=== PATIENT | male | born 1965 | race Caucasian/White ===

== ENCOUNTER 2016-06-07 18:31 | Inpatient (IN) | payer OTHER, BC ==
[~2016-06-07] VITALS: Ht 180.3 cm; Wt 104.0 kg
[~2016-06-07 18:31] MED LIST: LACTATED RINGER'S 1000 ML INJ 1,000 ML IV ONE; ONDANSETRON HCL 4 MG/2 ML VIAL IV PUSH ONE; PROPOFOL 200 MG/20 ML AMP IV ONE
[2016-06-07] MEDS ORDERED: MORPHINE SULFATE 8 MG/ML INJ ONE (18:36)
[2016-06-07] MEDS ORDERED: ceFAZolin 2 GM PREMIX 50 ML ONE (18:36)
[2016-06-07] MEDS ORDERED: DIPHTH/TETANUS/ACEL PERTUSSIS (BOOSTER) 0.5 ML VIAL/PFS IM ONE (18:39)
[2016-06-07 18:42] VITALS: O2SAT 99
[2016-06-07 18:56] LABS: AUTOMATED NEUTROPHIL # 15.1 TH/MM3 (1.8-7.7); BASOPHIL # 0.3 TH/MM3 (0-0.2); BASOPHIL % 1.5 % (0.0-2.0); EOSINOPHIL # 0.2 TH/MM3 (0-0.4); HEMATOCRIT 36.1 % (39.0-51.0); HEMO FLAGS DIFF FINAL; LYMPH % 16.3 % (9.0-44.0); LYMPHOCYTE # 3.3 TH/MM3 (1.0-4.8); MEAN CELL VOLUME 85.6 FL (80.0-100.0); MEAN CORPUSCULAR HEMOGLOBIN 28.9 PG (27.0-34.0); MEAN CORPUSCULAR HGB CONC 33.8 % (32.0-36.0); MONO % 6.4 % (0.0-8.0); NEUT % 74.8 % (16.0-70.0); PLATELET COUNT 354 TH/MM3 (150-450); RED BLOOD COUNT 4.22 MIL/MM3 (4.50-5.90); RED CELL DISTRIBUTION WIDTH 13.4 % (11.6-17.2); WHITE BLOOD COUNT 20.2 TH/MM3 (4.0-11.0)
[2016-06-07 18:59] LABS: I-STAT POTASSIUM 3.1 MMOL/L (3.5-4.9)
[2016-06-07] MEDS ORDERED: IOHEXOL 350 MG/ML 10 ML VIAL (for RAD DIAG) IV ONE (19:10)
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
--- NOTE | 2016-06-07 19:16 | RADRPT ---
EXAM DATE/TIME: 06/07/2016 18:57 [facility] COMPARISON: None. [EFORM] TECHNIQUE: Multiple contiguous axial images were obtained of the head. Using automated exposure control and adj ustment of the mA and/or kV according to patient size, radiation dose was kept as low as reasonably a chievable to obtain optimal diagnostic quality images. FINDINGS: CEREBRUM: The ventricles are normal for age. No evidence of midline shift, mass lesion, hemorrhage or acute in farction. No extra-axial fluid collections are seen. POSTERIOR FOSSA: The cerebellum and brainstem are intact. The 4th ventricle is midline. The cerebellopontine angle i s unremarkable. EXTRACRANIAL: The visualized portion of the orbits is intact. SKULL: The calvaria is intact. No evidence of skull fracture. CONCLUSION: 1. No acute intracranial abnormalities. Jori Rivas MD on June 07, 2016 at 19:14 on June 07, 2016 at 19:11 Board Certified Radiologist. This report was verified electronically.
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
--- NOTE | 2016-06-07 19:23 | RADRPT ---
EXAM DATE/TIME: 06/07/2016 18:26 [facility] COMPARISON: No previous studies available for comparison. INDICATIONS : Right Wrist pain Trauma Alert MEDICAL HISTORY : Unobtainable SURGICAL HISTORY : Unobtainable ENCOUNTER: Initial ACUITY: 1 day PAIN SCORE: 10/10 LOCATION: Right upper extremity FINDINGS: There is an intra-articular displaced fracture of the distal radius and ulna styloid. No dislocation at the wrist joint. Remote healed fracture fourth metacarpal. CONCLUSION: 1. Displaced Colles' fracture right wrist. Jori Rivas MD on June 07, 2016 at 19:21 Board Certified Radiologist. This report was verified electronically.
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
[2016-06-07 19:56] LABS: APTT (PATIENT) 18.7 SEC (24.3-30.1)
[2016-06-07] MEDS ORDERED: DEXAMETHASONE SOD PHOS 4 MG/ML VIAL ONE (20:01)
[2016-06-07] MEDS ORDERED: ACETAMINOPHEN 1000 MG/100 ML VIAL IV ONE (20:01)
[2016-06-07] MEDS ORDERED: GENTAMICIN SULFATE 80 MG/2 ML VIAL ONE ×2 (20:02→20:03)
[2016-06-07] MEDS ORDERED: FAMOTIDINE 20 MG/2 ML VIAL ONE (20:02)
[2016-06-07] MEDS ORDERED: BACITRACIN TOP OINT 15 GM TUBE ONE (20:03)
[2016-06-07] MEDS ORDERED: SUGAMMADEX SODIUM 200 MG/2 ML VIAL IV PUSH ONE ×2 (20:54)
[2016-06-07] MEDS: LACTATED RINGER'S 1000 ML INJ 1,000 ML IV SCH (21:20)
--- NOTE | 2016-06-07 21:33 | PD.OP ---
cc: Akira Rodriguez MD Operative Report Date of Surgery: Jun 07, 2016 Preoperative Diagnosis: Open left proximal tibia fracture, bilateral pubic rami fractures, sacral fracture Postoperative Diagnosis: Procedure: Closed reduction and external fixation of pelvis Irrigation and debridement left tibia, close reduction of left proximal tibia, external fixation of left tibia Surgeon: Akira Rodriguez Outside Residential Sales Professional(s): ALVERTO Saldana PA-C The surgical procedure was assisted by my physician cafe assistant. My P.A. presence was necessary throughout this case for the manipulation and positioning of the surgical extremity. My P.A. was assisting me throughout the duration of this procedure. The skill set of a physician cafe assistant was medically necessary to complete this procedure. During the surgical case the surgical services asst was working at the back table and the physician cafe assistant was directly assisting me. Operation and Findings: This patient sustained multiple injuries including right distal radius fracture , pelvic ring fractures, and open left tibia fracture. Patient was seen and evaluated preoperatively and found to have too much swelling to proceed with open reduction internal fixation. Risk and benefits of surgery were discussed in depth with patient and informed consent was confirmed. Surgical site was marked. Patient was brought to operating room and placed on the OR table. Patient was given IV sedation and GETA. Patient received IV antibiotics and timeout procedure was performed. Pelvic region and left leg were prepped with alcohol followed by Hibiclens and draped in the usual sterile fashion. CT began with excellent fixation of the pelvis. A small incision was made over the anterior inferior iliac spine bilaterally. Soft tissue was dissected bluntly. Pin sites were predrilled. Supra-acetabular position was utilized. Synthes PURVIS-coated pins were now placed. Fluoroscopy confirmed appropriate pin placement. At this point the pelvis was gently manipulated. The rami fractures were reduced. An external fixator construct was created. The external fixator was now tightened to hold reduction. Fluoroscopy confirmed well aligned pelvic ring injury. Next attention was turned to the proximal tibia fracture. The traumatic laceration was extended. Skin subcutaneous tissue fascia and bone were sharply debrided. Soft tissue and bone were thoroughly irrigated with sterile saline. Overall the wound was clean. The traumatic laceration was closed with 3-0 PDS and 3-0 nylon. Next attention was turned to external fixation. Two small incisions were made along the anterior femur and the tibia. Soft tissue Was dissected bluntly. Cannulas were placed down to the cortex of bone. Pin sites were predrilled. Synthes pins were placed into the femur and tibia. Fluoroscopy was used to confirm appropriate pin placement. An external fixator construct was now created with clamps and bars. Next attention was turned to reduction. Traction was applied. Fracture was manipulated. Good alignment of the fracture was obtained. The proximal tibia was initially comminuted. Fluoroscopy was used to confirm appropriate alignment of fracture. The external fixator was now tightened to hold reduction. Sterile dressings were applied. Patient was awakened and transferred to recovery room in stable condition. The soft tissue was reevaluated. Patient did have swelling around the knee and calf but compartments were soft and compressible with no signs of compartment syndrome. Akira Rodriguez MD Jun 07, 2016 21:33
[2016-06-07] MEDS ORDERED: fentaNYL CITRATE 250 MCG/5 ML AMP ONE (21:45)
[2016-06-07] MEDS ORDERED: MORPHINE SULFATE 4 MG/ML INJ ONE (21:46)
[2016-06-07] MEDS ORDERED: *MEPERIDINE 25 MG INJ VIAL PERIprocedural Use ONLY ONE (21:48)
[2016-06-07] MEDS ORDERED: *morphine SULFATE 8 MG/ML PERIprocedure ONLY ONE ×2 (21:49→22:47)
[2016-06-07] MEDS ORDERED: ENOXAPARIN SODIUM 30 MG/0.3 ML SYRINGE SQ SCH (22:00)
--- NOTE | 2016-06-07 22:19 | RADRPT ---
EXAM DATE/TIME: 06/07/2016 22:08 [facility] COMPARISON: CT THORAX W CONTRAST, June 07, 2016, 19:04. CHEST SINGLE AP, June 07, 2016, 18:26. INDICATIONS : Post central line placement. MEDICAL HISTORY : Unobtainable. SURGICAL HISTORY : Unobtainable. ENCOUNTER: Subsequent ACUITY: 1 day PAIN SCORE: Non-responsive. LOCATION: Bilateral chest FINDINGS: There is now a left subclavian central venous catheter with tip in the superior vena cava. No pneumot horax or other acute complication. Lungs appear clear. No pleural effusion or pneumothorax. Cardiomed iastinal silhouette remains normal. CONCLUSION: New left subclavian central venous catheter with tip in the superior vena cava. No pneumothorax. Yash Suarez MD on June 07, 2016 at 22:16 Board Certified Radiologist. This report was verified electronically.
[2016-06-07] MEDS: ceFAZolin 2 GM PREMIX 50 ML IV SCH (22:38)
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
--- NOTE | 2016-06-07 23:35 | RADRPT ---
EXAM DATE/TIME: 06/07/2016 21:02 [facility] COMPARISON: PELVIS AP ONLY, June 07, 2016, 18:26. INDICATIONS : External Fixation Pelvis. MEDICAL HISTORY : Unobtainable. SURGICAL HISTORY : Unobtainable. ENCOUNTER: Initial ACUITY: 1 day PAIN SCORE: Non-responsive. LOCATION: Pelvis. FINDINGS: 4 frontal images of the pelvis were recorded digitally using C-arm in the operating room during place ment of external fixation device. CONCLUSION: Intraoperative images. The Héctor Duran MD on June 07, 2016 at 23:32 Board Certified Radiologist. This report was verified electronically.
[2016-06-08] VITALS (11 sets, daily range): BP systolic 96–146; BP diastolic 58–84; PULSE 76–108; RESP 15–18; TEMP 97.1–98.7; O2SAT 96–100
[2016-06-08] MEDS: HYDROmorphone HCL PF 1 MG/ML VIAL IV PUSH PRN ×7 (00:15→23:40)
--- NOTE | 2016-06-08 00:48 | RADRPT ---
EXAM DATE/TIME: 06/07/2016 00:00 [facility] COMPARISON: No previous studies available for comparison. INDICATIONS : External Fixation Left Knee. MEDICAL HISTORY : Unobtainable. SURGICAL HISTORY : Unobtainable. ENCOUNTER: Initial ACUITY: 1 day PAIN SCORE: Non-responsive. LOCATION: Left Knee. FINDINGS: 2 images of the proximal leg a recorded digitally using C-arm in the operating room. CONCLUSION: Intraoperative images. Héctor Duran MD on June 08, 2016 at 0:46 Board Certified Radiologist. This report was verified electronically.
[2016-06-08] MEDS ORDERED: METO-309 PO (01:47)
[2016-06-08] MEDS ORDERED: MULT-65 PO (01:47)
[2016-06-08] MEDS ORDERED: ONDANSETRON HCL 4 MG/2 ML VIAL IV PUSH PRN (03:45)
[2016-06-08] MEDS: ACETAMINOPHEN/HYDROcodone 325 MG/10 MG TAB PO PRN ×3 (04:45→18:05)
[2016-06-08 05:53] LABS: HEMATOCRIT 28.2 % (39.0-51.0); REVIEW FLAG FINAL
[2016-06-08] MEDS: ceFAZolin 2 GM PREMIX 50 ML IV SCH ×3 (06:38→21:28)
[2016-06-08] MEDS: LACTATED RINGER'S 1000 ML INJ 1,000 ML IV SCH (07:20)
[2016-06-08] MEDS ORDERED: MAGNESIUM OXIDE 400 MG TAB PO PRN (07:45)
[2016-06-08] MEDS ORDERED: POTASSIUM CHLOR 20 MEQ PREMIX 100 ML IV PRN ×2 (07:45)
[2016-06-08] MEDS ORDERED: MAGNESIUM SULFATE INJ 2 GM in SODIUM CHLORIDE 0.9% INJ 96 ML IV PRN (07:45)
[2016-06-08] MEDS ORDERED: POTASSIUM CHLOR 40 MEQ PREMIX 100 ML IV PRN ×2 (07:45)
[2016-06-08] MEDS ORDERED: SODIUM PHOSPHATE INJ 30 MMOL in SODIUM CHLOR 0.9% 250 ML INJ 240 ML IV PRN (07:45)
[2016-06-08] MEDS ORDERED: POTASSIUM PHOSPHATE INJ 30 MMOL in SODIUM CHLOR 0.9% 250 ML INJ 250 ML IV PRN (07:45)
[2016-06-08] MEDS ORDERED: POTASSIUM PHOSPHATE MONOBASIC 500 MG TAB PO/TUBE PRN (07:45)
[2016-06-08] MEDS ORDERED: MAGNESIUM SULFATE INJ 4 GM in SODIUM CHLORIDE 0.9% INJ 92 ML IV PRN (07:45)
[2016-06-08] MEDS ORDERED: POTASSIUM PHOSPHATE MONOBASIC 500 MG TAB PO PRN (07:45)
[2016-06-08] MEDS: DOCUSATE SODIUM 50 MG/SENNA 8.6 MG TAB PO SCH ×2 (08:06→21:27)
[2016-06-08] MEDS: POLYETHYLENE GLYCOL 17 GM PKG PO SCH (08:06)
[2016-06-08] MEDS: FAMOTIDINE 20 MG TAB PO SCH ×2 (08:06→21:28)
[2016-06-08] MEDS: METOPROLOL TARTRATE 25 MG TAB PO SCH (08:06)
[2016-06-08] MEDS: BACITRACIN TOP OINT 15 GM TUBE TOP SCH ×2 (08:07→21:00)
[2016-06-08 09:06] LABS: BICARBONATE 26.5 MEQ/L (21.0-32.0); CALCIUM-PROTEIN CORRECTED 8.3 MG/DL (8.5-10.1); POTASSIUM 4.1 MEQ/L (3.5-5.1); TOTAL BILIRUBIN ADULT 0.4 MG/DL (0.2-1.0)
[2016-06-08] MEDS: METHOCARBAMOL 500 MG TAB PO SCH ×3 (10:32→21:27)
[2016-06-08] MEDS: GABAPENTIN 300 MG CAP PO SCH ×2 (12:39→18:00)
--- NOTE | 2016-06-08 12:43 | RADRPT ---
EXAM DATE/TIME: 06/08/2016 12:16 [facility] COMPARISON: No previous studies available for comparison. INDICATIONS : Right knee pain, CUSTODIAL. MEDICAL HISTORY : None. SURGICAL HISTORY : None. ENCOUNTER: Initial ACUITY: 1 day PAIN SCORE: 10/10 LOCATION: Right knee FINDINGS: Two view examination of the right knee demonstrates no evidence of fracture or dislocation. Bony min eralization is normal. There some spurring at the anterosuperior aspect of the patella. There is a m ild effusion. The suprapatellar soft tissues have a normal configuration. CONCLUSION: Mild effusion. An acute bony injury is not seen. Yash Bates MD on June 08, 2016 at 12:41 Board Certified Radiologist. This report was verified electronically.
--- NOTE | 2016-06-08 12:50 | RADRPT ---
EXAM DATE/TIME: 06/08/2016 12:19 [facility] COMPARISON: KNEE RIGHT LTD (1 OR 2 VWS), June 08, 2016, 12:16. INDICATIONS : Right leg pain, PENITENTIARY. MEDICAL HISTORY : None. SURGICAL HISTORY : None. ENCOUNTER: Initial ACUITY: 1 day PAIN SCORE: 10/10 LOCATION: Right proximal leg FINDINGS: On the AP view, there is minimal lucency seen at the proximal lateral tibial metaphyseal region. This is not seen on the knee series. This likely does not represent a fracture although it is unexplained . The Remaining aspects of the tibia and fibula appear intact. The knee and ankle joints are normally aligned. CONCLUSION: Questionable lucency at the proximal lateral tibial metaphyseal region. If this an area of clinical c oncern, CT examination could be performed. Yash Bates MD on June 08, 2016 at 12:45 Board Certified Radiologist. This report was verified electronically.
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
[2016-06-08] MEDS: ENOXAPARIN SODIUM 30 MG/0.3 ML SYRINGE SQ SCH (21:28)
[2016-06-08] MEDS ORDERED: AMLO10TA2 PO (21:41)
[2016-06-09] VITALS (7 sets, daily range): BP systolic 116–154; BP diastolic 68–82; PULSE 89–112; RESP 16–19; TEMP 97.3–99.6; O2SAT 94–97
[2016-06-09] MEDS: HYDROmorphone HCL PF 1 MG/ML VIAL IV PUSH PRN ×3 (03:18→20:32)
[2016-06-09] MEDS: ceFAZolin 2 GM PREMIX 50 ML IV SCH ×2 (05:57→15:04)
[2016-06-09] MEDS: METHOCARBAMOL 500 MG TAB PO SCH ×3 (05:57→20:30)
[2016-06-09] MEDS ORDERED: SODIUM CHLORID 0.9% 500 ML IV SCH ×2 (06:00→07:30)
[2016-06-09] MEDS ORDERED: INSULIN HUMAN REGULAR 1,000 UNITS/10 ML VIAL SQ PRN ×2 (06:00→07:30)
[2016-06-09 06:16] LABS: AUTOMATED NEUTROPHIL # 5.8 TH/MM3 (1.8-7.7); BASOPHIL % 0.2 % (0.0-2.0); EOSINOPHIL % 0.4 % (0.0-4.0); HEMATOCRIT 22.2 % (39.0-51.0); HEMO FLAGS DIFF FINAL; LYMPH % 23.3 % (9.0-44.0); LYMPHOCYTE # 2.1 TH/MM3 (1.0-4.8); MEAN CELL VOLUME 85.2 FL (80.0-100.0); MEAN CORPUSCULAR HEMOGLOBIN 29.5 PG (27.0-34.0); MEAN CORPUSCULAR HGB CONC 34.6 % (32.0-36.0); MONO % 11.1 % (0.0-8.0); PLATELET COUNT 186 TH/MM3 (150-450); RED CELL DISTRIBUTION WIDTH 13.2 % (11.6-17.2); WHITE BLOOD COUNT 8.9 TH/MM3 (4.0-11.0)
[2016-06-09] MEDS: METOPROLOL TARTRATE 25 MG TAB PO SCH (06:42)
[2016-06-09] MEDS ORDERED: VANCOMYCIN HCL 1000 MG VIAL ONE (06:55)
[2016-06-09] MEDS ORDERED: GENTAMICIN SULFATE 80 MG/2 ML VIAL ONE (06:56)
[2016-06-09] MEDS ORDERED: ceFAZolin INJ 1,000 MG VIAL ONE (06:56)
[2016-06-09] MEDS ORDERED: SODIUM CHLOR 0.9% 250 ML INJ 250 ML ONE (06:56)
[2016-06-09] MEDS ORDERED: ACETAMINOPHEN 1000 MG/100 ML VIAL IV ONE (07:12)
[2016-06-09] MEDS ORDERED: DEXAMETHASONE SOD PHOS 4 MG/ML VIAL ONE (07:12)
[2016-06-09] MEDS ORDERED: fentaNYL CITRATE 250 MCG/5 ML AMP ONE (07:12)
[2016-06-09] MEDS ORDERED: FAMOTIDINE 20 MG/2 ML VIAL ONE (07:12)
[2016-06-09] MEDS ORDERED: MIDAZOLAM HCL 2 MG/2 ML VIAL ONE (07:12)
[2016-06-09 07:13] LABS: BICARBONATE 27.2 MEQ/L (21.0-32.0); MAGNESIUM 2.2 MG/DL (1.5-2.5); POTASSIUM 3.8 MEQ/L (3.5-5.1)
[2016-06-09] MEDS ORDERED: METOPROLOL TARTRATE 25 MG TAB PO PRN (07:30)
--- NOTE | 2016-06-09 08:24 | PD.OP ---
cc: Akira Rodriguez MD Operative Report Date of Surgery: Jun 09, 2016 Preoperative Diagnosis: Comminuted displaced right distal radius fracture Postoperative Diagnosis: Procedure: Open reduction internal fixation right wrist Anesthesia: Gen. Surgeon: Akira Rodriguez Speech Lang Path(s): ALVERTO Saldana PA-C The surgical procedure was assisted by my physician medical assistant instructor. My P.A. presence was necessary throughout this case for the manipulation and positioning of the surgical extremity. My P.A. was assisting me throughout the duration of this procedure. The skill set of a physician medical assistant instructor was medically necessary to complete this procedure. During the surgical case the operating room surgical technician was working at the back table and the physician medical assistant instructor was directly assisting me. Operation and Findings: Patient was seen and evaluated preoperatively and found to have multiple injuries including a displaced right distal radius fracture. Informed consent was obtained after detailed discussion of risk and benefits including bleeding, infection, injury to arteries, nerves, and blood vessels, weakness and numbness of hand, and tendon rupture. Informed consent was obtained. Patient received IV antibiotics prior to incision. Timeout procedure was performed. Operative extremity was prepped with alcohol followed by Hibiclens and draped usual sterile fashion. A standard volar approach to the distal radius was utilized. A 3 inch incision was made over the FCR tendon. Tendon sheath was opened. Pronator quadratus was elevated . The fracture site was now visualized. The fracture did have intra-articular extension. Traction was applied. The articular surface was reduced. Fracture fragments were manipulated to achieve excellent reduction. K wires were used to hold provisional fixation. Fluoroscopy confirmed appropriate alignment of fracture. A Synthes 2 column variable angle distal radius plate was selected. Plate was provisionally fixed to bone with K wires. 2.7 and 2.4 cortical screws were used to compress plate to bone. Fluoroscopy confirmed appropriate alignment of fracture with well-placed hardware. Multiple 2.4 locking screws were now placed distally. Screws were predrilled and measured for appropriate length. 2 additional screws were placed into the shaft. K wires were removed. Final fluoroscopy revealed excellent of fracture with well-placed hardware. The wound was thoroughly irrigated with sterile saline. Subcutaneous tissue was closed with 3-0 Vicryl and skin was closed with 3-0 nylon. Sterile dressings were applied with Xeroform, 4 x 4, soft roll , and a well padded volar splint. Patient was awakened and transferred to recovery room in stable condition Akira Rodriguez MD Jun 09, 2016 08:24
[2016-06-09] MEDS ORDERED: BUPIVACAINE/EPINEPHRINE 0.5% PF 30 ML VIAL ONE (08:27)
[2016-06-09] MEDS ORDERED: MORPHINE SULFATE 4 MG/ML INJ ONE (08:49)
[2016-06-09] MEDS ORDERED: *morphine SULFATE 8 MG/ML PERIprocedure ONLY ONE ×3 (08:59→09:18)
[2016-06-09] MEDS: DOCUSATE SODIUM 50 MG/SENNA 8.6 MG TAB PO SCH ×2 (09:00→20:29)
[2016-06-09] MEDS ORDERED: DO NOT ADM ANY ANTICOAGULANT DRUGS XX PRN (09:00)
[2016-06-09] MEDS: ENOXAPARIN SODIUM 30 MG/0.3 ML SYRINGE SQ SCH ×2 (09:00→20:30)
[2016-06-09] MEDS: BACITRACIN TOP OINT 15 GM TUBE TOP SCH ×2 (09:00→21:00)
[2016-06-09] MEDS: FAMOTIDINE 20 MG TAB PO SCH ×2 (09:00→20:30)
[2016-06-09] MEDS ORDERED: *HYDROmorphone PF 1 MG VIAL PERIprocedural Use ONLY ONE (09:25)
[2016-06-09] MEDS ORDERED: PROPOFOL 200 MG/20 ML AMP IV ONE (11:36)
[2016-06-09] MEDS ORDERED: ONDANSETRON HCL 4 MG/2 ML VIAL IV PUSH ONE (11:36)
[2016-06-09] MEDS ORDERED: LACTATED RINGER'S 1000 ML INJ 1,000 ML IV ONE (11:36)
[2016-06-09] MEDS ORDERED: PHENYLEPH/NS 1000 MCG/10 ML SYR IV ONE (11:36)
--- NOTE | 2016-06-09 12:02 | HHI.PR ---
Subjective Subjective Notes Pain controlled. Getting OOB to cardiac chair with PT during visit Objective Vitals/I&O Vital Signs Date Time Temp Pulse Resp B/P Pulse Ox O2 Delivery O2 Flow Rate FiO2 06/09/16 10:10 97.3 89 16 116/69 97 06/09/16 09:45 Nasal Cannula 2 Labs Laboratory Tests Test 06/09/16 05:47 White Blood Count 8.9 Red Blood Count 2.60 Hemoglobin 7.7 Hematocrit 22.2 Mean Corpuscular Volume 85.2 Mean Corpuscular Hemoglobin 29.5 Mean Corpuscular Hemoglobin 34.6 Concent Red Cell Distribution Width 13.2 Platelet Count 186 Mean Platelet Volume 7.2 Neutrophils (%) (Auto) 65.0 Lymphocytes (%) (Auto) 23.3 Monocytes (%) (Auto) 11.1 Eosinophils (%) (Auto) 0.4 Basophils (%) (Auto) 0.2 Neutrophils # (Auto) 5.8 Lymphocytes # (Auto) 2.1 Monocytes # (Auto) 1.0 Eosinophils # (Auto) 0.0 Basophils # (Auto) 0.0 CBC Comment DIFF FINAL Differential Comment Sodium Level 143 Potassium Level 3.8 Chloride Level 107 Carbon Dioxide Level 27.2 Anion Gap 9 Blood Urea Nitrogen 17 Creatinine 0.98 Estimat Glomerular Filtration 80 Rate Random Glucose 103 Calcium Level 7.6 Phosphorus Level 1.8 Magnesium Level 2.2 Radiology Last Impressions Pelvis X-Ray 06/07/161833 Signed Impressions: Service Date/Time: Tuesday, June 07, 2016 18:26 - CONCLUSION: 1. Multiple pelvic fractures as above. CT pending. Jori Rivas MD Head CT 06/07/161833 Signed Impressions: Service Date/Time: Tuesday, June 07, 2016 18:57 - CONCLUSION: 1. No acute intracranial abnormalities. Jori Rivas MD Chest X-Ray 06/07/161833 Signed Impressions: Service Date/Time: Tuesday, June 07, 2016 18:26 - CONCLUSION: No acute abnormality demonstrated. Trauma chest CT to follow. Yash Suarez MD Chest CT 06/07/161833 Signed Impressions: Service Date/Time: Tuesday, June 07, 2016 19:04 - CONCLUSION: 1. No acute traumatic injury identified within the thorax. Jori Rivas MD Cervical Spine CT 06/07/161833 Signed Impressions: Service Date/Time: Tuesday, June 07, 2016 18:57 - CONCLUSION: 1. No acute findings in the cervical spine. Mild degenerative disc disease. Jori Rivas MD Abdomen/Pelvis CT 06/07/161833 Signed Impressions: Service Date/Time: Tuesday, June 07, 2016 19:04 - CONCLUSION: 1. Pelvic and sacral fractures as above. Small pelvic sidewall, right anterolateral retroperitoneal and presacral hematomas without active bleeding. The sacral fracture is sagittally oriented and extends down the entire length of the sacral canal. 2. Apparent injury focally of the mesenteric vessels in the right lower quadrant of the abdomen with a small focus of bleeding but minimal surrounding hematoma. I believe it involves a branch of the superior mesenteric vein, not the artery. 3. Solid organs are intact. Also no evidence of bladder rupture. Yash Suarez MD Wrist X-Ray 06/07/16 0000 Signed Impressions: Service Date/Time: Tuesday, June 07, 2016 18:26 - CONCLUSION: 1. Displaced Colles' fracture right wrist. Jori Rivas MD Tibia/Fibula X-Ray 06/07/16 0000 Signed Impressions: Service Date/Time: Tuesday, June 07, 2016 18:26 - CONCLUSION: Comminuted fractures proximally of the left tibia and fibula. The tibia fracture includes the tibial tuberosity. Yash Suarez MD Lower Extremity CT 06/07/16 0000 Signed Impressions: Service Date/Time: Tuesday, June 07, 2016 19:14 - CONCLUSION: 1. Comminuted and medially displaced proximal metadiaphyseal fracture of the left tibia as described above. There is prominent involvement of the tibial tuberosity. No articular surface or intra-articular involvement. Patellar tendon remains intact. 2. Also a medially displaced and considerably overlapping proximal shaft fracture of the fibula. Yash Suarez MD Knee X-Ray 06/07/16 0000 Signed Impressions: Service Date/Time: Tuesday, June 07, 2016 00:00 - CONCLUSION: Intraoperative images. Héctor Duran MD Narrative Exam GENERAL: 51-year-old well-nourished, well developed male lying in bed. SKIN: Warm and dry. HEAD: Normocephalic. ENT: No nasal bleeding or discharge. Mucous membranes pink and moist. NECK: Trachea midline. No JVD. CARDIOVASCULAR: Regular rate and rhythm. RESPIRATORY: No accessory muscle use. Lungs clear to auscultation. Breath sounds equal bilaterally. GASTROINTESTINAL: Abdomen soft, non-tender, nondistended. + BS. MUSCULOSKELETAL: Extremities without cyanosis, or edema. Pelvis ex-fix in place. Bilateral hands with Sean wrap in place. LLE with Sean wrap in place, + pedal pulse, skin warm with good cap refill. MAEW. NEUROLOGICAL: Awake and alert. Normal speech. A/P Assessment and Plan INJURIES: L1-L5 transverse process fx BILAT superior and inferior pubic rami fxs LEFT acetabulum fx Sacral fx with extension into upper coccyx Pelvic, retroperitoneal and presacral hematomas without active bleed Open LEFT tib/fib fx Displaced colles' fx right wrist 06/07: Closed reduction and external fixation of pelvis, I&D left tibia, closed reduction of left proximal tibia with ex-fix placement Diet: Regular, tolerating Pulm: IS, encouraged patient use. Pain: [place] 10, Dilaudid, Robaxin. Neurontin. Pain control. Activity: OOB cardiac chair. PT and OT ordered. (NWB BLE, NWB RUE) GI: Pepcid Bowel: Syl-colace, Miralax. No BM yet. DVT: Lovenox 30 BID, SCDs Ordered specialty bed to prevent skin breakdown. ABX: IV Ancef x6 Right tib-fib x-ray with questionable fracture. Orthopedics aware and obtaining CT scan. Plan of care discussed with patient and family at bedside. Haley Quick Jun 09, 2016 12:02
--- NOTE | 2016-06-09 13:12 | RADRPT ---
EXAM DATE/TIME: 06/09/2016 08:15 [facility] COMPARISON: WRIST RIGHT LIMITED(AP & LAT), June 07, 2016, 18:26. INDICATIONS : ORIF right wrist fracture. MEDICAL HISTORY : Unobtainable. SURGICAL HISTORY : Unobtainable. ENCOUNTER: Subsequent ACUITY: 2 days PAIN SCORE: Non-responsive. LOCATION: Right wrist FINDINGS: There is a surgical plate at the plantar aspect of the distal radius successfully reducing the previo usly seen fracture. There is a fracture of the ulnar styloid. Radiocarpal joint is normally aligned. CONCLUSION: Successful ORIF. Yash Bates MD on June 09, 2016 at 13:10 Board Certified Radiologist. This report was verified electronically.
[2016-06-09] MEDS: ACETAMINOPHEN/HYDROcodone 325 MG/10 MG TAB PO PRN ×2 (13:36→18:26)
[2016-06-09] MEDS: POLYETHYLENE GLYCOL 17 GM PKG PO SCH (15:05)
[2016-06-09] MEDS: GABAPENTIN 300 MG CAP PO SCH ×3 (15:05→18:25)
--- NOTE | 2016-06-09 18:13 | RADRPT ---
EXAM DATE/TIME: 06/09/2016 17:44 [facility] COMPARISON: TIBIA/FIBULA RIGHT (AP/LAT), June 08, 2016, 12:19. KNEE RIGHT LTD (1 OR 2 VWS), June 08, 2016, 12: 16. INDICATIONS : Trauma; post trauma alert, abnormal x-ray. RADIATION DOSE: 6.17 CTDIvol (mGy) MEDICAL HISTORY : None SURGICAL HISTORY : ortho. ENCOUNTER: Initial ACUITY: 1 day PAIN SCALE: 5/10 LOCATION: Right knee. TECHNIQUE: Volumetric scanning of the knee was performed. Using automated exposure control and adjustment of th e mA and/or kV according to patient size, radiation dose was kept as low as reasonably achievable to obtain optimal diagnostic quality images. FINDINGS: BONES: There is nondisplaced fracture through the lateral tibial plateau and extending through the epiphysis and metaphyseal region to the lateral proximal tibial cortex. This is not displaced. This does exten d into the knee joint. No other fracture is seen. The knee joint normally aligned. JOINTS: There is a mild lipohemarthrosis present.. SOFT TISSUES: Muscles, tendons and neurovascular structures are grossly unremarkable. No evidence of mass, organize d fluid collection, or foreign body. There is superficial soft tissue swelling. CONCLUSION: Nondisplaced lateral proximal tibial fracture extending into the knee joint. Yash Bates MD on June 09, 2016 at 18:05 Board Certified Radiologist. This report was verified electronically.
[2016-06-09] MEDS: MELATONIN 5 MG TAB PO PRN (22:00)
[2016-06-10] VITALS (8 sets, daily range): BP systolic 122–147; BP diastolic 60–77; PULSE 100–111; RESP 16–18; TEMP 97.5–99.1; O2SAT 92–98
[2016-06-10] MEDS: ACETAMINOPHEN/HYDROcodone 325 MG/10 MG TAB PO PRN ×6 (00:48→18:07)
[2016-06-10] MEDS: METHOCARBAMOL 500 MG TAB PO SCH ×3 (05:31→22:00)
[2016-06-10] MEDS: LACTATED RINGER'S 1000 ML IV SCH ×2 (06:00→07:30)
--- NOTE | 2016-06-10 07:12 | PD.ORT.PN ---
Subjective Subjective Remarks Resting comfortably. Still some complaints of pain to right knee Objective Vitals Vital Signs Date Time Temp Pulse Resp B/P Pulse Ox O2 Delivery O2 Flow Rate FiO2 06/10/16 01:48 18 06/10/16 00:15 97.5 102 17 142/76 95 06/09/16 21:02 18 06/09/16 20:30 99.5 112 17 136/78 94 06/09/16 19:50 96 21 06/09/16 16:00 98.3 100 19 132/68 96 06/09/16 12:00 97.6 95 17 130/69 94 06/09/16 10:10 97.3 89 16 116/69 97 06/09/16 09:45 99.0 92 14 111/67 95 Nasal Cannula 2 06/09/16 09:30 94 14 126/69 99 Nasal Cannula 2 06/09/16 09:15 94 15 128/76 98 Nasal Cannula 2 06/09/16 09:00 97 15 139/81 97 Nasal Cannula 2 06/09/16 08:45 102 13 147/83 97 Nasal Cannula 2 06/09/16 08:43 99.0 97 13 129/74 98 Nasal Cannula 2 06/09/16 08:00 99.6 109 16 154/82 96 I/O 06/09/16 06/09/16 06/09/16 06/10/16 06/10/16 06/10/16 07:00 15:00 23:00 07:00 15:00 23:00 Intake Total 0 ml 1230 ml 480 ml Output Total 1000 ml 1255 ml 900 ml Balance -1000 ml -25 ml -420 ml Intake Oral 0 ml 480 ml 480 ml IV Total 250 ml Other 500 ml Output Urine Total 1000 ml 1225 ml 900 ml Estimated Blood Loss 30 ml # Bowel Movements 0 0 Result Diagram: 06/09/16 0547 06/09/16 0547 Imaging Last 72 hours Impressions Wrist X-Ray 06/09/16 0000 Signed Impressions: Service Date/Time: Thursday, June 09, 2016 08:15 - CONCLUSION: Successful ORIF. Yash Bates MD Tibia/Fibula X-Ray 06/08/16 0000 Signed Impressions: Service Date/Time: Wednesday, June 08, 2016 12:19 - CONCLUSION: Questionable lucency at the proximal lateral tibial metaphyseal region. If this an area of clinical concern, CT examination could be performed. Yash Bates MD Knee X-Ray 06/08/16 0000 Signed Impressions: Service Date/Time: Wednesday, June 08, 2016 12:16 - CONCLUSION: Mild effusion. An acute bony injury is not seen. Yash Bates MD Pelvis X-Ray 06/07/161833 Signed Impressions: Service Date/Time: Tuesday, June 07, 2016 18:26 - CONCLUSION: 1. Multiple pelvic fractures as above. CT pending. Jori Rivas MD Head CT 06/07/161833 Signed Impressions: Service Date/Time: Tuesday, June 07, 2016 18:57 - CONCLUSION: 1. No acute intracranial abnormalities. Jori Rivas MD Chest X-Ray 06/07/161833 Signed Impressions: Service Date/Time: Tuesday, June 07, 2016 18:26 - CONCLUSION: No acute abnormality demonstrated. Trauma chest CT to follow. Yash Suarez MD Chest CT 06/07/161833 Signed Impressions: Service Date/Time: Tuesday, June 07, 2016 19:04 - CONCLUSION: 1. No acute traumatic injury identified within the thorax. Jori Rivas MD Cervical Spine CT 06/07/161833 Signed Impressions: Service Date/Time: Tuesday, June 07, 2016 18:57 - CONCLUSION: 1. No acute findings in the cervical spine. Mild degenerative disc disease. Jori Rivas MD Abdomen/Pelvis CT 06/07/161833 Signed Impressions: Service Date/Time: Tuesday, June 07, 2016 19:04 - CONCLUSION: 1. Pelvic and sacral fractures as above. Small pelvic sidewall, right anterolateral retroperitoneal and presacral hematomas without active bleeding. The sacral fracture is sagittally oriented and extends down the entire length of the sacral canal. 2. Apparent injury focally of the mesenteric vessels in the right lower quadrant of the abdomen with a small focus of bleeding but minimal surrounding hematoma. I believe it involves a branch of the superior mesenteric vein, not the artery. 3. Solid organs are intact. Also no evidence of bladder rupture. Yash Suarez MD Objective Remarks Right upper extremity: Clean dry dressings intact. Intact sensation of her radial ulnar and median nerves patient's good capillary refills. He is able to extend his fingers and make a fist Right lower extremity: Minimal pain with hip range of motion. Pain over lateral tibial plateau. Mild swelling and skin is intact. Distally intact sensation with good capillary refills strong dorsiflexion and plantar flexion of foot Left lower extremity: External fixator in place. Pin sites clean and dry. Swelling improving. Intact distal pulses and capillary refills Assessment & Plan Assessment and Plan Right distal radius fracture status post ORIF POD 1 Left tibia plateau fracture status post external fixation Right nondisplaced lateral tibial plateau fracture nonoperative treatment Nonweightbearing bilateral lower extremities and right wrist Maintain splint right wrist [employer] for Canvas knee immobilizer right tibia plateau fracture Pin care twice a day external fixation Continue to follow swelling to be up to move forward with surgery ROSA MENDIETA PA-C Jun 10, 2016 07:12
[2016-06-10 08:03] LABS: AUTOMATED NEUTROPHIL # 6.6 TH/MM3 (1.8-7.7); BASOPHIL # 0.1 TH/MM3 (0-0.2); BASOPHIL % 0.7 % (0.0-2.0); EOSINOPHIL # 0.1 TH/MM3 (0-0.4); EOSINOPHIL % 1.1 % (0.0-4.0); LYMPH % 25.3 % (9.0-44.0); LYMPHOCYTE # 2.6 TH/MM3 (1.0-4.8); MEAN CELL VOLUME 85.3 FL (80.0-100.0); MEAN CORPUSCULAR HEMOGLOBIN 29.9 PG (27.0-34.0); MONO % 9.5 % (0.0-8.0); NEUT % 63.4 % (16.0-70.0); PLATELET COUNT 224 TH/MM3 (150-450); RED BLOOD COUNT 2.43 MIL/MM3 (4.50-5.90); RED CELL DISTRIBUTION WIDTH 13.4 % (11.6-17.2); WHITE BLOOD COUNT 10.4 TH/MM3 (4.0-11.0)
[2016-06-10 08:15] LABS: HEMATOCRIT 20.8 % (39.0-51.0)
[2016-06-10 08:16] LABS: HEMO FLAGS DIFF FINAL
[2016-06-10 08:22] LABS: ANION GAP 7 MEQ/L (5-15); AST (GOT) 48 U/L (15-37); BICARBONATE 30.3 MEQ/L (21.0-32.0); BLOOD UREA NITROGEN 12 MG/DL (7-18); CHLORIDE 103 MEQ/L (98-107); GLOMERULAR FILTRATION RATE 82 ML/MIN (>89); POTASSIUM 3.7 MEQ/L (3.5-5.1); SODIUM (NA) 140 MEQ/L (136-145)
[2016-06-10 08:26] LABS: ALKALINE PHOSPHATASE 35 U/L (45-117); ALT (GPT) 30 U/L (12-78); TOTAL BILIRUBIN ADULT 0.5 MG/DL (0.2-1.0)
[2016-06-10] MEDS: GABAPENTIN 300 MG CAP PO SCH ×3 (08:38→18:07)
[2016-06-10] MEDS: DOCUSATE SODIUM 50 MG/SENNA 8.6 MG TAB PO SCH ×2 (08:38→21:31)
[2016-06-10] MEDS: FAMOTIDINE 20 MG TAB PO SCH ×2 (08:38→21:32)
[2016-06-10] MEDS: ENOXAPARIN SODIUM 30 MG/0.3 ML SYRINGE SQ SCH ×2 (08:38→21:33)
[2016-06-10] MEDS: METOPROLOL TARTRATE 25 MG TAB PO SCH (08:38)
[2016-06-10] MEDS: POLYETHYLENE GLYCOL 17 GM PKG PO SCH (08:39)
[2016-06-10] MEDS: BACITRACIN TOP OINT 15 GM TUBE TOP SCH ×2 (08:40→21:00)
[2016-06-10] MEDS: HYDROmorphone HCL PF 1 MG/ML VIAL IV PUSH PRN ×2 (10:10→21:33)
[2016-06-10] MEDS ORDERED: SODIUM CHLOR 0.9% 250 ML INJ 250 ML IV ONE (13:00)
--- NOTE | 2016-06-10 14:45 | EKG ---
Date Performed: 06/09/2016 Time Performed: 04:56:18 PTAGE: 51 years EKG: Sinus tachycardia Inferior T wave changes are nonspecific Borderline ECG NO PREVIOUS TRACING DOCTOR: Missael Haas Interpretating Date/Time 06/10/2016 14:40:09
--- NOTE | 2016-06-10 15:33 | HHI.PR ---
Subjective Subjective Notes Patient requesting to keep Stallworth catheter in place Complaints of sacral pain Reports the specialty bed is much more comfortable Objective Vitals/I&O Vital Signs Date Time Temp Pulse Resp B/P Pulse Ox O2 Delivery O2 Flow Rate FiO2 06/10/16 12:00 98.0 105 16 127/63 94 06/09/16 19:50 21 06/09/16 09:45 Nasal Cannula 2 Labs Laboratory Tests Test 06/10/16 06/10/16 07:30 12:53 White Blood Count 10.4 Red Blood Count 2.43 Hemoglobin 7.3 Hematocrit 20.8 Mean Corpuscular Volume 85.3 Mean Corpuscular Hemoglobin 29.9 Mean Corpuscular Hemoglobin 35.0 Concent Red Cell Distribution Width 13.4 Platelet Count 224 Mean Platelet Volume 7.0 Neutrophils (%) (Auto) 63.4 Lymphocytes (%) (Auto) 25.3 Monocytes (%) (Auto) 9.5 Eosinophils (%) (Auto) 1.1 Basophils (%) (Auto) 0.7 Neutrophils # (Auto) 6.6 Lymphocytes # (Auto) 2.6 Monocytes # (Auto) 1.0 Eosinophils # (Auto) 0.1 Basophils # (Auto) 0.1 CBC Comment DIFF FINAL Differential Comment Sodium Level 140 Potassium Level 3.7 Chloride Level 103 Carbon Dioxide Level 30.3 Anion Gap 7 Blood Urea Nitrogen 12 Creatinine 0.96 Estimat Glomerular Filtration 82 Rate Random Glucose 115 Calcium Level 7.6 Total Bilirubin 0.5 Aspartate Amino Transf 48 (AST/SGOT) Alanine Aminotransferase 30 (ALT/SGPT) Alkaline Phosphatase 35 Total Protein 5.4 Albumin 2.5 Blood Type A POSITIVE Antibody Screen NEGATIVE Crossmatch Leukocyte-Reduced Red Blood Cells Blood Bank Comment Radiology Last Impressions Pelvis X-Ray 06/07/161833 Signed Impressions: Service Date/Time: Tuesday, June 07, 2016 18:26 - CONCLUSION: 1. Multiple pelvic fractures as above. CT pending. Jori Rivas MD Head CT 06/07/161833 Signed Impressions: Service Date/Time: Tuesday, June 07, 2016 18:57 - CONCLUSION: 1. No acute intracranial abnormalities. Jori Rivas MD Chest X-Ray 06/07/161833 Signed Impressions: Service Date/Time: Tuesday, June 07, 2016 18:26 - CONCLUSION: No acute abnormality demonstrated. Trauma chest CT to follow. Yash Suarez MD Chest CT 06/07/161833 Signed Impressions: Service Date/Time: Tuesday, June 07, 2016 19:04 - CONCLUSION: 1. No acute traumatic injury identified within the thorax. Jori Rivas MD Cervical Spine CT 06/07/161833 Signed Impressions: Service Date/Time: Tuesday, June 07, 2016 18:57 - CONCLUSION: 1. No acute findings in the cervical spine. Mild degenerative disc disease. Jori Rivas MD Abdomen/Pelvis CT 06/07/161833 Signed Impressions: Service Date/Time: Tuesday, June 07, 2016 19:04 - CONCLUSION: 1. Pelvic and sacral fractures as above. Small pelvic sidewall, right anterolateral retroperitoneal and presacral hematomas without active bleeding. The sacral fracture is sagittally oriented and extends down the entire length of the sacral canal. 2. Apparent injury focally of the mesenteric vessels in the right lower quadrant of the abdomen with a small focus of bleeding but minimal surrounding hematoma. I believe it involves a branch of the superior mesenteric vein, not the artery. 3. Solid organs are intact. Also no evidence of bladder rupture. Yash Suarez MD Wrist X-Ray 06/07/16 Signed Impressions: Service Date/Time: Tuesday, June 07, 2016 18:26 - CONCLUSION: 1. Displaced Colles' fracture right wrist. Jori Rivas MD Tibia/Fibula X-Ray 06/07/16 Signed Impressions: Service Date/Time: Tuesday, June 07, 2016 18:26 - CONCLUSION: Comminuted fractures proximally of the left tibia and fibula. The tibia fracture includes the tibial tuberosity. Yash Suarez MD Lower Extremity CT 06/07/16 0000 Signed Impressions: Service Date/Time: Tuesday, June 07, 2016 19:14 - CONCLUSION: 1. Comminuted and medially displaced proximal metadiaphyseal fracture of the left tibia as described above. There is prominent involvement of the tibial tuberosity. No articular surface or intra-articular involvement. Patellar tendon remains intact. 2. Also a medially displaced and considerably overlapping proximal shaft fracture of the fibula. Yash Suarez MD Knee X-Ray 06/07/16 0000 Signed Impressions: Service Date/Time: Tuesday, June 07, 2016 00:00 - CONCLUSION: Intraoperative images. Héctor Duran MD Narrative Exam GENERAL: 51-year-old well-nourished, well developed male lying in bed. SKIN: Warm and dry. HEAD: Normocephalic. ENT: No nasal bleeding or discharge. Mucous membranes pink and moist. NECK: Trachea midline. No JVD. CARDIOVASCULAR: Regular rate and rhythm. RESPIRATORY: No accessory muscle use. Lungs clear to auscultation. Breath sounds equal bilaterally. GASTROINTESTINAL: Abdomen soft, non-tender, nondistended. + BS. Stallworth catheter still in place. MUSCULOSKELETAL: Extremities without cyanosis, or edema. Pelvis ex-fix in place. Bilateral hands with Sean wrap in place. LLE with Sean wrap in place, + pedal pulse, skin warm with good cap refill. MAEW. NEUROLOGICAL: Awake and alert. Normal speech. A/P Assessment and Plan INJURIES: L1-L5 transverse process fx BILAT superior and inferior pubic rami fxs LEFT acetabulum fx Sacral fx with extension into upper coccyx Pelvic, retroperitoneal and presacral hematomas without active bleed Open LEFT tib/fib fx Displaced Colles' fx right wrist 06/07: Closed reduction and external fixation of pelvis, I&D left tibia, closed reduction of left proximal tibia with ex-fix placement Diet: Regular, tolerating Pulm: IS, encouraged patient use. Pain: [place] 10, Dilaudid, Robaxin. Neurontin. Pain controlled. Activity: OOB cardiac chair. PT and OT evaluating (NWB BLE, NWB RUE) GI: Pepcid Bowel: Syl-colace, Miralax. LBM 06/09. DVT: Lovenox 30 BID, SCDs Orthopedics following. Specialty bed to prevent skin breakdown. Remove Stallworth catheter. Remove central line. Explained to patient he has higher risk of infection by keeping catheter and central line in place. Hgb 7.3 today, transfuse 1 PRBC. Recheck in AM Plan of care discussed with patient and family at bedside. Haley Quick Jun 10, 2016 15:33
[2016-06-10] MEDS ORDERED: MAGNESIUM HYDROXIDE SUSP 30 ML CUP PO PRN (23:30)
[2016-06-10] MEDS ORDERED: BISACODYL 10 MG SUPP RECTAL PRN (23:45)
[2016-06-10] MEDS: MAGNESIUM HYDROXIDE SUSP 30 ML CUP PO PRN (23:45)
[2016-06-11] VITALS (8 sets, daily range): BP systolic 117–137; BP diastolic 69–79; PULSE 97–113; RESP 16–17; TEMP 96.7–99.1; O2SAT 94–96
[2016-06-11] MEDS: ACETAMINOPHEN/HYDROcodone 325 MG/10 MG TAB PO PRN ×5 (00:50→21:51)
[2016-06-11] MEDS: MELATONIN 5 MG TAB PO PRN ×2 (00:50→23:34)
[2016-06-11] MEDS: LACTATED RINGER'S 1000 ML IV SCH ×2 (06:00→07:30)
[2016-06-11 06:55] LABS: AUTOMATED NEUTROPHIL # 7.5 TH/MM3 (1.8-7.7); BASOPHIL # 0.1 TH/MM3 (0-0.2); BASOPHIL % 0.4 % (0.0-2.0); EOSINOPHIL # 0.3 TH/MM3 (0-0.4); EOSINOPHIL % 2.4 % (0.0-4.0); HEMATOCRIT 24.5 % (39.0-51.0); LYMPH % 23.7 % (9.0-44.0); LYMPHOCYTE # 2.7 TH/MM3 (1.0-4.8); MEAN CELL VOLUME 84.6 FL (80.0-100.0); MEAN CORPUSCULAR HEMOGLOBIN 29.5 PG (27.0-34.0); MEAN CORPUSCULAR HGB CONC 34.9 % (32.0-36.0); MONO % 8.4 % (0.0-8.0); NEUT % 65.1 % (16.0-70.0); PLATELET COUNT 253 TH/MM3 (150-450); RED BLOOD COUNT 2.89 MIL/MM3 (4.50-5.90); RED CELL DISTRIBUTION WIDTH 13.6 % (11.6-17.2); WHITE BLOOD COUNT 11.5 TH/MM3 (4.0-11.0)
[2016-06-11] MEDS: MAGNESIUM HYDROXIDE SUSP 30 ML CUP PO PRN (07:00)
[2016-06-11 07:01] LABS: ALT (GPT) 48 U/L (12-78); ANION GAP 10 MEQ/L (5-15); AST (GOT) 60 U/L (15-37); BICARBONATE 27.4 MEQ/L (21.0-32.0); BLOOD UREA NITROGEN 13 MG/DL (7-18); CHLORIDE 102 MEQ/L (98-107); GLOMERULAR FILTRATION RATE 87 ML/MIN (>89); SODIUM (NA) 139 MEQ/L (136-145)
[2016-06-11 07:02] LABS: HEMO FLAGS AUTO DIFF
[2016-06-11 07:03] LABS: ALKALINE PHOSPHATASE 48 U/L (45-117); TOTAL BILIRUBIN ADULT 0.7 MG/DL (0.2-1.0)
--- NOTE | 2016-06-11 07:03 | PD.ORT.PN ---
Subjective Subjective Remarks Resting comfortably. Knee immobilizer on right knee has helped pain significantly Objective Vitals Vital Signs Date Time Temp Pulse Resp B/P Pulse Ox O2 Delivery O2 Flow Rate FiO2 06/11/16 04:30 99.1 100 17 127/74 94 06/11/16 01:50 18 06/11/16 00:15 99.1 113 17 117/73 94 06/10/16 22:03 18 06/10/16 20:30 99.1 111 17 122/60 92 06/10/16 19:17 94 21 06/10/16 15:45 98.6 100 16 132/68 98 06/10/16 15:40 98.4 103 16 129/75 95 06/10/16 12:00 98.0 105 16 127/63 94 06/10/16 07:50 98.1 105 17 131/77 92 I/O 06/10/16 06/10/16 06/10/16 06/11/16 06/11/16 06/11/16 07:00 15:00 23:00 07:00 15:00 23:00 Intake Total 480 ml 720 ml 730 ml 240 ml Output Total 1650 ml 1600 ml 1250 ml 800 ml Balance -1170 ml -880 ml -520 ml -560 ml Intake Oral 480 ml 720 ml 480 ml 240 ml Packed Cells 250 ml Output Urine Total 1650 ml 1600 ml 1250 ml 800 ml # Bowel Movements 0 0 0 Result Diagram: 06/10/16 0730 06/11/16 0548 Imaging Last 72 hours Impressions Wrist X-Ray 06/09/16 0000 Signed Impressions: Service Date/Time: Thursday, June 09, 2016 08:15 - CONCLUSION: Successful ORIF. Yash Bates MD Tibia/Fibula X-Ray 06/08/16 0000 Signed Impressions: Service Date/Time: Wednesday, June 08, 2016 12:19 - CONCLUSION: Questionable lucency at the proximal lateral tibial metaphyseal region. If this an area of clinical concern, CT examination could be performed. Yash Bates MD Knee X-Ray 06/08/16 0000 Signed Impressions: Service Date/Time: Wednesday, June 08, 2016 12:16 - CONCLUSION: Mild effusion. An acute bony injury is not seen. Yash Bates MD Pelvis X-Ray [id number] Signed Impressions: Service Date/Time: Tuesday, June 07, 2016 18:26 - CONCLUSION: 1. Multiple pelvic fractures as above. CT pending. Jori Rivas MD Head CT 06/07/161833 Signed Impressions: Service Date/Time: Tuesday, June 07, 2016 18:57 - CONCLUSION: 1. No acute intracranial abnormalities. Jori Rivas MD Chest X-Ray 06/07/161833 Signed Impressions: Service Date/Time: Tuesday, June 07, 2016 18:26 - CONCLUSION: No acute abnormality demonstrated. Trauma chest CT to follow. Yash Suarez MD Chest CT 06/07/161833 Signed Impressions: Service Date/Time: Tuesday, June 07, 2016 19:04 - CONCLUSION: 1. No acute traumatic injury identified within the thorax. Jori Rivas MD Cervical Spine CT 06/07/161833 Signed Impressions: Service Date/Time: Tuesday, June 07, 2016 18:57 - CONCLUSION: 1. No acute findings in the cervical spine. Mild degenerative disc disease. Jori Rivas MD Abdomen/Pelvis CT 06/07/161833 Signed Impressions: Service Date/Time: Tuesday, June 07, 2016 19:04 - CONCLUSION: 1. Pelvic and sacral fractures as above. Small pelvic sidewall, right anterolateral retroperitoneal and presacral hematomas without active bleeding. The sacral fracture is sagittally oriented and extends down the entire length of the sacral canal. 2. Apparent injury focally of the mesenteric vessels in the right lower quadrant of the abdomen with a small focus of bleeding but minimal surrounding hematoma. I believe it involves a branch of the superior mesenteric vein, not the artery. 3. Solid organs are intact. Also no evidence of bladder rupture. Yash Suarez MD Objective Remarks Right upper extremity: Clean dry dressings intact. Intact sensation of her radial ulnar and median nerves patient's good capillary refills. He is able to extend his fingers and make a fist Right lower extremity: Minimal pain with hip range of motion. Pain over lateral tibial plateau. Mild swelling and skin is intact. Knee immobilizer in place. Distally intact sensation with good capillary refills strong dorsiflexion and plantar flexion of foot Left lower extremity: External fixator in place. Pin sites clean and dry. Swelling improving. Intact distal pulses and capillary refills Assessment & Plan Assessment and Plan Right distal radius fracture status post ORIF POD 2 Left tibia plateau fracture status post external fixation Right nondisplaced lateral tibial plateau fracture nonoperative treatment Nonweightbearing bilateral lower extremities and right wrist Maintain splint right wrist [employer] knee immobilizer right tibia plateau fracture Pin care twice a day external fixation Continue to follow swelling and one swelling has continued to decrease we'll plan for surgery ROSA MENDIETA PA-C Jun 11, 2016 07:03
[2016-06-11 07:55] LABS: BANDS 5 % (0-6); BASOPHILS 3 % (0-2); NEUTROPHIL # MANUAL DIFF 8.6 TH/MM3 (1.8-7.7); POLYS (SEG NEUTROPHILS) 70 % (16-70); SCAN/DIFF FINAL DIFF MANUAL; WBC DIFF SAMPLE 100
[2016-06-11 07:56] LABS: PLATELET ESTIMATE SMEAR NORMAL (NORMAL); PLATELET MORPHOLOGY NORMAL (NORMAL)
[2016-06-11] MEDS: ENOXAPARIN SODIUM 30 MG/0.3 ML SYRINGE SQ SCH (09:00)
[2016-06-11] MEDS: BACITRACIN TOP OINT 15 GM TUBE TOP SCH ×2 (09:00→21:00)
[2016-06-11] MEDS: POLYETHYLENE GLYCOL 17 GM PKG PO SCH (09:52)
[2016-06-11] MEDS: METOPROLOL TARTRATE 25 MG TAB PO SCH (09:52)
[2016-06-11] MEDS: DOCUSATE SODIUM 50 MG/SENNA 8.6 MG TAB PO SCH ×2 (09:52→21:49)
[2016-06-11] MEDS: FAMOTIDINE 20 MG TAB PO SCH ×2 (09:52→21:49)
[2016-06-11] MEDS: GABAPENTIN 300 MG CAP PO SCH ×3 (09:52→18:32)
[2016-06-11] MEDS: BISACODYL 10 MG SUPP RECTAL PRN (09:53)
[2016-06-11] MEDS ORDERED: BISACODYL 10 MG SUPP RECTAL ONE (12:00)
[2016-06-11] MEDS: HYDROmorphone HCL PF 1 MG/ML VIAL IV PUSH PRN (12:39)
--- NOTE | 2016-06-11 13:50 | RADRPT ---
EXAM DATE/TIME: 06/11/2016 13:06 [facility] COMPARISON: CT ABDOMEN & PELVIS W CONTRAST, June 07, 2016, 19:04. INDICATIONS : Trauma MEDICAL HISTORY : None. SURGICAL HISTORY : Ortho ENCOUNTER: Subsequent ACUITY: 2 days PAIN SCORE: 8/10 LOCATION: Bilateral Pelvis FINDINGS: The patient is in an external fixator. There are fractures of the superior and inferior pubic rami bi laterally being more widely on the right than the left. There is midline sacral fracture. T he sacroiliac joints are intact. CONCLUSION: Pelvic and sacral fractures. The patient is in an external fixator. Yash Bates MD on June 11, 2016 at 13:42 Board Certified Radiologist. This report was verified electronically.
[2016-06-11] MEDS: METHOCARBAMOL 500 MG TAB PO SCH ×2 (13:52→21:49)
--- NOTE | 2016-06-11 14:48 | HHI.PR ---
Subjective Subjective Notes Pain controlled. No BM yet. Patient states he wanted to keep his Stallworth catheter and the nurse got an order from the orthopedics doctor to keep the catheter in place. Remarks seen and examined with CHIEF PSYCHOLOGY-agree with above note Objective Vitals/I&O Vital Signs Date Time Temp Pulse Resp B/P Pulse Ox O2 Delivery O2 Flow Rate FiO2 06/11/16 07:53 98.8 102 17 132/70 96 06/11/16 07:50 21 06/09/16 09:45 Nasal Cannula 2 Labs Laboratory Tests Test 06/11/16 05:48 White Blood Count 11.5 Red Blood Count 2.89 Hemoglobin 8.5 Hematocrit 24.5 Mean Corpuscular Volume 84.6 Mean Corpuscular Hemoglobin 29.5 Mean Corpuscular Hemoglobin 34.9 Concent Red Cell Distribution Width 13.6 Platelet Count 253 Mean Platelet Volume 7.1 Neutrophils (%) (Auto) 65.1 Lymphocytes (%) (Auto) 23.7 Monocytes (%) (Auto) 8.4 Eosinophils (%) (Auto) 2.4 Basophils (%) (Auto) 0.4 Neutrophils # (Auto) 7.5 Lymphocytes # (Auto) 2.7 Monocytes # (Auto) 1.0 Eosinophils # (Auto) 0.3 Basophils # (Auto) 0.1 CBC Comment AUTO DIFF Differential Total Cells 100 Counted Neutrophils % (Manual) 70 Band Neutrophils % 5 Lymphocytes % 20 Monocytes % 2 Basophils % 3 Neutrophils # (Manual) 8.6 Differential Comment FINAL DIFF MANUAL Platelet Estimate NORMAL Platelet Morphology Comment NORMAL Sodium Level 139 Potassium Level 4.0 Chloride Level 102 Carbon Dioxide Level 27.4 Anion Gap 10 Blood Urea Nitrogen 13 Creatinine 0.91 Estimat Glomerular Filtration 87 Rate Random Glucose 104 Calcium Level 7.9 Total Bilirubin 0.7 Aspartate Amino Transf 60 (AST/SGOT) Alanine Aminotransferase 48 (ALT/SGPT) Alkaline Phosphatase 48 Total Protein 5.5 Albumin 2.4 Radiology Last Impressions Pelvis X-Ray 06/07/161833 Signed Impressions: Service Date/Time: Tuesday, June 07, 2016 18:26 - CONCLUSION: 1. Multiple pelvic fractures as above. CT pending. Jori Rivas MD Head CT 06/07/161833 Signed Impressions: Service Date/Time: Tuesday, June 07, 2016 18:57 - CONCLUSION: 1. No acute intracranial abnormalities. Jori Rivas MD Chest X-Ray 06/07/161833 Signed Impressions: Service Date/Time: Tuesday, June 07, 2016 18:26 - CONCLUSION: No acute abnormality demonstrated. Trauma chest CT to follow. Yash Suarez MD Chest CT 06/07/161833 Signed Impressions: Service Date/Time: Tuesday, June 07, 2016 19:04 - CONCLUSION: 1. No acute traumatic injury identified within the thorax. Jori Rivas MD Cervical Spine CT 06/07/161833 Signed Impressions: Service Date/Time: Tuesday, June 07, 2016 18:57 - CONCLUSION: 1. No acute findings in the cervical spine. Mild degenerative disc disease. Jori Rivas MD Abdomen/Pelvis CT 06/07/161833 Signed Impressions: Service Date/Time: Tuesday, June 07, 2016 19:04 - CONCLUSION: 1. Pelvic and sacral fractures as above. Small pelvic sidewall, right anterolateral retroperitoneal and presacral hematomas without active bleeding. The sacral fracture is sagittally oriented and extends down the entire length of the sacral canal. 2. Apparent injury focally of the mesenteric vessels in the right lower quadrant of the abdomen with a small focus of bleeding but minimal surrounding hematoma. I believe it involves a branch of the superior mesenteric vein, not the artery. 3. Solid organs are intact. Also no evidence of bladder rupture. Yash Suarez MD Wrist X-Ray 06/07/16 Signed Impressions: Service Date/Time: Tuesday, June 07, 2016 18:26 - CONCLUSION: 1. Displaced Colles' fracture right wrist. Jori Rivas MD Tibia/Fibula X-Ray 06/07/16 Signed Impressions: Service Date/Time: Tuesday, June 07, 2016 18:26 - CONCLUSION: Comminuted fractures proximally of the left tibia and fibula. The tibia fracture includes the tibial tuberosity. Yash Suarez MD Lower Extremity CT 06/07/16 0000 Signed Impressions: Service Date/Time: Tuesday, June 07, 2016 19:14 - CONCLUSION: 1. Comminuted and medially displaced proximal metadiaphyseal fracture of the left tibia as described above. There is prominent involvement of the tibial tuberosity. No articular surface or intra-articular involvement. Patellar tendon remains intact. 2. Also a medially displaced and considerably overlapping proximal shaft fracture of the fibula. Yash Suarez MD Knee X-Ray 06/07/16 0000 Signed Impressions: Service Date/Time: Tuesday, June 07, 2016 00:00 - CONCLUSION: Intraoperative images. Héctor Duran MD Narrative Exam GENERAL: 51-year-old well-nourished, well developed male lying in bed. SKIN: Warm and dry. HEAD: Normocephalic. ENT: No nasal bleeding or discharge. Mucous membranes pink and moist. NECK: Trachea midline. No JVD. CARDIOVASCULAR: Regular rate and rhythm. RESPIRATORY: No accessory muscle use. Lungs clear to auscultation. Breath sounds equal bilaterally. GASTROINTESTINAL: Abdomen soft, non-tender, nondistended. + BS. Stallworth catheter still in place. MUSCULOSKELETAL: Extremities without cyanosis, or edema. Pelvis ex-fix in place. Bilateral hands with Sean wrap in place. LLE with Sean wrap in place, + pedal pulse, skin warm with good cap refill. MAEW. NEUROLOGICAL: Awake and alert. Normal speech. A/P Assessment and Plan INJURIES: L1-L5 transverse process fx BILAT superior and inferior pubic rami fxs LEFT acetabulum fx Sacral fx with extension into upper coccyx Pelvic, retroperitoneal and presacral hematomas without active bleed Open LEFT tib/fib fx Displaced Colles' fx right wrist 06/07: Closed reduction and external fixation of pelvis, I&D left tibia, closed reduction of left proximal tibia with ex-fix placement Diet: Regular, tolerating Pulm: IS, encouraged patient use. Pain: [place] 10, Dilaudid, Robaxin. Neurontin. Pain controlled. Activity: OOB cardiac chair. PT and OT evaluating (NWB BLE, NWB RUE) GI: Pepcid Bowel: Syl-colace, Miralax. LBM 06/09. Dulcolax NM x1. DVT: Lovenox 30 BID, SCD's Specialty bed to prevent skin breakdown. Patient to keep Stallworth catheter in place per orthopedics physician for immobility. Orthopedics following. Hgb 8.5 today. Plan of care discussed with patient and family at bedside. seen and examined with CHIEF PSYCHOLOGY agree with assesment and plan Haley Quick Jun 11, 2016 14:48 Brenda Baker MD Jun 11, 2016 17:21
[2016-06-11] MEDS ORDERED: KETAMINE HCL 500 MG/5 ML VIAL ONE (15:54)
[2016-06-11] MEDS ORDERED: MIDAZOLAM HCL 2 MG/2 ML VIAL ONE (15:54)
[2016-06-12] VITALS: BP 131/75; PULSE 114; RESP 17; TEMP 97.2; O2SAT 95
[2016-06-12 04:00] VITALS: BP 132/78; PULSE 100; RESP 16; TEMP 98.2; O2SAT 95
[2016-06-12] MEDS: HYDROmorphone HCL PF 1 MG/ML VIAL IV PUSH PRN ×3 (04:14→22:17)
[2016-06-12] MEDS: LACTATED RINGER'S 1000 ML IV SCH ×2 (06:00→13:21)
[2016-06-12] MEDS: METHOCARBAMOL 500 MG TAB PO SCH ×3 (06:32→22:18)
[2016-06-12] MEDS: ACETAMINOPHEN/HYDROcodone 325 MG/10 MG TAB PO PRN ×4 (06:33→20:40)
--- NOTE | 2016-06-12 06:41 | PD.ORT.PN ---
Subjective Subjective Remarks Resting comfortably. Knee immobilizer on right knee has helped pain significantly Objective Vitals Vital Signs Date Time Temp Pulse Resp B/P Pulse Ox O2 Delivery O2 Flow Rate FiO2 06/12/16 04:00 98.2 100 16 132/78 95 06/12/16 00:00 97.2 114 17 131/75 95 06/11/16 20:00 97.6 103 16 137/79 95 06/11/16 19:17 Room Air 06/11/16 18:04 96 21 06/11/16 16:00 96.7 100 17 119/72 94 06/11/16 12:00 97.5 97 17 120/69 95 06/11/16 07:53 98.8 102 17 132/70 96 06/11/16 07:50 96 21 I/O 06/11/16 06/11/16 06/11/16 06/12/16 06/12/16 06/12/16 07:00 15:00 23:00 07:00 15:00 23:00 Intake Total 240 ml 480 ml 240 ml 0 ml Output Total 800 ml 675 ml 800 ml 250 ml Balance -560 ml -195 ml -560 ml -250 ml Intake Oral 240 ml 480 ml 240 ml 0 ml Output Urine Total 800 ml 675 ml 800 ml 250 ml # Bowel Movements 0 1 0 Result Diagram: 06/11/16 0548 06/11/16 0548 Imaging Last 72 hours Impressions Wrist X-Ray 06/09/16 0000 Signed Impressions: Service Date/Time: Thursday, June 09, 2016 08:15 - CONCLUSION: Successful ORIF. Yash Bates MD Tibia/Fibula X-Ray 06/08/16 0000 Signed Impressions: Service Date/Time: Wednesday, June 08, 2016 12:19 - CONCLUSION: Questionable lucency at the proximal lateral tibial metaphyseal region. If this an area of clinical concern, CT examination could be performed. Yash Bates MD Knee X-Ray 06/08/16 0000 Signed Impressions: Service Date/Time: Wednesday, June 08, 2016 12:16 - CONCLUSION: Mild effusion. An acute bony injury is not seen. Yash Bates MD Pelvis X-Ray 06/07/16 1834 Signed Impressions: Service Date/Time: Tuesday, June 07, 2016 18:26 - CONCLUSION: 1. Multiple pelvic fractures as above. CT pending. Jori Rivas MD Head CT 06/07/161833 Signed Impressions: Service Date/Time: Tuesday, June 07, 2016 18:57 - CONCLUSION: 1. No acute intracranial abnormalities. Jori Rivas MD Chest X-Ray 06/07/161833 Signed Impressions: Service Date/Time: Tuesday, June 07, 2016 18:26 - CONCLUSION: No acute abnormality demonstrated. Trauma chest CT to follow. Yash Suarez MD Chest CT 06/07/161833 Signed Impressions: Service Date/Time: Tuesday, June 07, 2016 19:04 - CONCLUSION: 1. No acute traumatic injury identified within the thorax. Jori Rivas MD Cervical Spine CT 06/07/161833 Signed Impressions: Service Date/Time: Tuesday, June 07, 2016 18:57 - CONCLUSION: 1. No acute findings in the cervical spine. Mild degenerative disc disease. Jori Rivas MD Abdomen/Pelvis CT 06/07/161833 Signed Impressions: Service Date/Time: Tuesday, June 07, 2016 19:04 - CONCLUSION: 1. Pelvic and sacral fractures as above. Small pelvic sidewall, right anterolateral retroperitoneal and presacral hematomas without active bleeding. The sacral fracture is sagittally oriented and extends down the entire length of the sacral canal. 2. Apparent injury focally of the mesenteric vessels in the right lower quadrant of the abdomen with a small focus of bleeding but minimal surrounding hematoma. I believe it involves a branch of the superior mesenteric vein, not the artery. 3. Solid organs are intact. Also no evidence of bladder rupture. Yash Suarez MD Objective Remarks Right upper extremity: Clean dry dressings intact. Intact sensation of her radial ulnar and median nerves patient's good capillary refills. He is able to extend his fingers and make a fist Right lower extremity: Minimal pain with hip range of motion. Pain over lateral tibial plateau. Mild swelling and skin is intact. Knee immobilizer in place. Distally intact sensation with good capillary refills strong dorsiflexion and plantar flexion of foot Left lower extremity: External fixator in place. Pin sites clean and dry. Swelling improving. Intact distal pulses and capillary refills Assessment & Plan Assessment and Plan Right distal radius fracture status post ORIF POD 3 Left tibia plateau fracture status post external fixation Right nondisplaced lateral tibial plateau fracture nonoperative treatment Nonweightbearing bilateral lower extremities and right wrist Maintain splint right wrist [place] knee immobilizer right tibia plateau fracture Pin care twice a day external fixation Nothing by mouth Sign consents Surgery this morning with Dr. Flores for open reduction internal fixation of left tibia plateau with removal of external fixation ROSA MENDIETA PA-C Jun 12, 2016 06:41
[2016-06-12 08:10] VITALS: BP 143/76; PULSE 101; RESP 18; TEMP 97.4; O2SAT 96
[2016-06-12] MEDS: POLYETHYLENE GLYCOL 17 GM PKG PO SCH (09:00)
[2016-06-12] MEDS: DOCUSATE SODIUM 50 MG/SENNA 8.6 MG TAB PO SCH ×2 (09:31→22:18)
[2016-06-12] MEDS: GABAPENTIN 300 MG CAP PO SCH ×3 (09:32→18:00)
[2016-06-12] MEDS: FAMOTIDINE 20 MG TAB PO SCH ×2 (09:32→22:18)
[2016-06-12] MEDS: METOPROLOL TARTRATE 25 MG TAB PO SCH (09:32)
[2016-06-12] MEDS: BACITRACIN TOP OINT 15 GM TUBE TOP SCH ×2 (09:35→21:00)
[2016-06-12] MEDS ORDERED: PROPOFOL 200 MG/20 ML AMP IV ONE (12:00)
[2016-06-12] MEDS ORDERED: NEOSTIGMINE METHYLSULFATE 10 MG/10 ML VIAL IV PUSH ONE (12:00)
[2016-06-12] MEDS ORDERED: ONDANSETRON HCL 4 MG/2 ML VIAL IV PUSH ONE (12:00)
[2016-06-12 12:25] VITALS: BP 125/69; PULSE 94; RESP 16; TEMP 96.5; O2SAT 96
[2016-06-12] MEDS ORDERED: VANCOMYCIN HCL 1000 MG VIAL ONE (13:57)
[2016-06-12] MEDS ORDERED: ceFAZolin 2 GM PREMIX 50 ML ONE (13:57)
[2016-06-12] MEDS ORDERED: GENTAMICIN SULFATE 80 MG/2 ML VIAL ONE (13:57)
--- NOTE | 2016-06-12 15:07 | HHI.PR ---
Subjective Subjective Notes To OR today for LEFT tibia repair Pain controlled Objective Vitals/I&O Vital Signs Date Time Temp Pulse Resp B/P Pulse Ox O2 Delivery O2 Flow Rate FiO2 06/12/16 12:25 96.5 94 16 125/69 96 06/11/16 19:17 Room Air 06/11/16 18:04 21 06/09/16 09:45 2 Labs Laboratory Tests Test 06/08/16 06/08/16 06/09/16 06/10/16 01:00 08:05 05:47 12:53 Nasal Screen MRSA (PCR) NEGATIVE Protein Corrected Calcium 8.3 MG/DL Phosphorus Level 1.8 MG/DL Magnesium Level 2.2 MG/DL Blood Type A POSITIVE Antibody Screen NEGATIVE Crossmatch Leukocyte-Reduced Red Blood Cells Blood Bank Comment Test 06/11/16 05:48 White Blood Count 11.5 TH/MM3 Red Blood Count 2.89 MIL/MM3 Hemoglobin 8.5 GM/DL Hematocrit 24.5 % Mean Corpuscular Volume 84.6 FL Mean Corpuscular Hemoglobin 29.5 PG Mean Corpuscular Hemoglobin 34.9 % Concent Red Cell Distribution Width 13.6 % Platelet Count 253 TH/MM3 Mean Platelet Volume 7.1 FL Neutrophils (%) (Auto) 65.1 % Lymphocytes (%) (Auto) 23.7 % Monocytes (%) (Auto) 8.4 % Eosinophils (%) (Auto) 2.4 % Basophils (%) (Auto) 0.4 % Neutrophils # (Auto) 7.5 TH/MM3 Lymphocytes # (Auto) 2.7 TH/MM3 Monocytes # (Auto) 1.0 TH/MM3 Eosinophils # (Auto) 0.3 TH/MM3 Basophils # (Auto) 0.1 TH/MM3 CBC Comment AUTO DIFF Differential Total Cells 100 Counted Neutrophils % (Manual) 70 % Band Neutrophils % 5 % Lymphocytes % 20 % Monocytes % 2 % Basophils % 3 % Neutrophils # (Manual) 8.6 TH/MM3 Differential Comment FINAL DIFF MANUAL Platelet Estimate NORMAL Platelet Morphology Comment NORMAL Sodium Level 139 MEQ/L Potassium Level 4.0 MEQ/L Chloride Level 102 MEQ/L Carbon Dioxide Level 27.4 MEQ/L Anion Gap 10 MEQ/L Blood Urea Nitrogen 13 MG/DL Creatinine 0.91 MG/DL Estimat Glomerular Filtration 87 ML/MIN Rate Random Glucose 104 MG/DL Calcium Level 7.9 MG/DL Total Bilirubin 0.7 MG/DL Aspartate Amino Transf 60 U/L (AST/SGOT) Alanine Aminotransferase 48 U/L (ALT/SGPT) Alkaline Phosphatase 48 U/L Total Protein 5.5 GM/DL Albumin 2.4 GM/DL Radiology Last Impressions Pelvis X-Ray 06/07/161833 Signed Impressions: Service Date/Time: Tuesday, June 07, 2016 18:26 - CONCLUSION: 1. Multiple pelvic fractures as above. CT pending. Jori Rivas MD Head CT 06/07/161833 Signed Impressions: Service Date/Time: Tuesday, June 07, 2016 18:57 - CONCLUSION: 1. No acute intracranial abnormalities. Jori Rivas MD Chest X-Ray 06/07/161833 Signed Impressions: Service Date/Time: Tuesday, June 07, 2016 18:26 - CONCLUSION: No acute abnormality demonstrated. Trauma chest CT to follow. Yash Suarez MD Chest CT 06/07/161833 Signed Impressions: Service Date/Time: Tuesday, June 07, 2016 19:04 - CONCLUSION: 1. No acute traumatic injury identified within the thorax. Jori Rivas MD Cervical Spine CT 06/07/161833 Signed Impressions: Service Date/Time: Tuesday, June 07, 2016 18:57 - CONCLUSION: 1. No acute findings in the cervical spine. Mild degenerative disc disease. Jori Rivas MD Abdomen/Pelvis CT 06/07/161833 Signed Impressions: Service Date/Time: Tuesday, June 07, 2016 19:04 - CONCLUSION: 1. Pelvic and sacral fractures as above. Small pelvic sidewall, right anterolateral retroperitoneal and presacral hematomas without active bleeding. The sacral fracture is sagittally oriented and extends down the entire length of the sacral canal. 2. Apparent injury focally of the mesenteric vessels in the right lower quadrant of the abdomen with a small focus of bleeding but minimal surrounding hematoma. I believe it involves a branch of the superior mesenteric vein, not the artery. 3. Solid organs are intact. Also no evidence of bladder rupture. Yash Suarez MD Wrist X-Ray 06/07/16 0000 Signed Impressions: Service Date/Time: Tuesday, June 07, 2016 18:26 - CONCLUSION: 1. Displaced Colles' fracture right wrist. Jori Rivas MD Tibia/Fibula X-Ray 06/07/16 0000 Signed Impressions: Service Date/Time: Tuesday, June 07, 2016 18:26 - CONCLUSION: Comminuted fractures proximally of the left tibia and fibula. The tibia fracture includes the tibial tuberosity. Yash Suarez MD Lower Extremity CT 06/07/16 0000 Signed Impressions: Service Date/Time: Tuesday, June 07, 2016 19:14 - CONCLUSION: 1. Comminuted and medially displaced proximal metadiaphyseal fracture of the left tibia as described above. There is prominent involvement of the tibial tuberosity. No articular surface or intra-articular involvement. Patellar tendon remains intact. 2. Also a medially displaced and considerably overlapping proximal shaft fracture of the fibula. Yash Suarez MD Knee X-Ray 06/07/16 0000 Signed Impressions: Service Date/Time: Tuesday, June 07, 2016 00:00 - CONCLUSION: Intraoperative images. Héctor Duran MD Narrative Exam GENERAL: 51-year-old well-nourished, well developed male lying in bed. SKIN: Warm and dry. HEAD: Normocephalic. ENT: No nasal bleeding or discharge. Mucous membranes pink and moist. NECK: Trachea midline. No JVD. CARDIOVASCULAR: Regular rate and rhythm. RESPIRATORY: No accessory muscle use. Lungs clear to auscultation. Breath sounds equal bilaterally. GASTROINTESTINAL: Abdomen soft, non-tender, nondistended. + BS. Stallworth catheter still in place. MUSCULOSKELETAL: Extremities without cyanosis, or edema. Pelvis ex-fix in place. Bilateral hands with Sean wrap in place. LLE with Sean wrap in place, + pedal pulse, skin warm with good cap refill. MAEW. NEUROLOGICAL: Awake and alert. Normal speech. A/P Assessment and Plan INJURIES: L1-L5 transverse process fx BILAT superior and inferior pubic rami fxs LEFT acetabulum fx Sacral fx with extension into upper coccyx Pelvic, retroperitoneal and presacral hematomas without active bleed Open LEFT tib/fib fx Displaced Colles' fx right wrist 06/07: Closed reduction and external fixation of pelvis, I&D left tibia, closed reduction of left proximal tibia with ex-fix placement Diet: Regular, tolerating Pulm: IS, encouraged patient use. Pain: [place] 10, Dilaudid, Robaxin. Neurontin. Pain controlled. Activity: OOB cardiac chair. PT and OT evaluating (NWB BLE, NWMarques RUE) GI: Pepcid Bowel: Syl-colace, Miralax. LBM 06/12 DVT: Lovenox 30 BID, SCD's Specialty bed to prevent skin breakdown. Patient to keep Stallworth catheter in place per orthopedics physician for immobility. Orthopedics following. Plan of care discussed with patient at bedside. Haley Quick Jun 12, 2016 15:07 Haley Quick Jun 12, 2016 15:07
[2016-06-12] MEDS ORDERED: MIDAZOLAM HCL 2 MG/2 ML VIAL ONE (17:27)
[2016-06-12] MEDS ORDERED: SODIUM CHLORIDE 0.9% FLUSH 5 ML FLUSH IVF PRN (19:15)
[2016-06-12] MEDS ORDERED: NALOXONE HCL 0.4 MG/ML AMP IV PRN (19:15)
[2016-06-12] MEDS ORDERED: MISCELLANEOUS NURSING INFORMATION XX PRN (19:15)
[2016-06-12] MEDS ORDERED: MISCELLANEOUS PHARMACY INFORMATION XX ONE (19:15)
[2016-06-12] MEDS ORDERED: Post-op Orders (for Pharmacy) MISC XX ONE (19:15)
[2016-06-12] MEDS ORDERED: MORPHINE SULFATE 4 MG/ML INJ IV PUSH PRN (19:15)
[2016-06-12] MEDS ORDERED: MORPHINE SULFATE 30 MG/30 ML PCA IV SCH (19:15)
--- NOTE | 2016-06-12 19:17 | PD.OP ---
cc: Akira Rodriguez MD Operative Report Date of Surgery: Jun 12, 2016 Preoperative Diagnosis: Open left proximal tibia fracture Postoperative Diagnosis: Procedure: Open reduction internal fixation left proximal tibia bicondylar plateau fracture Removal of external fixation Anesthesia: Gen. Surgeon: Akira Rodriguez Wireless Internet Installer(s): ALVERTO Green PA-C The surgical procedure was assisted by my physician assistant to the ceo. My P.A. presence was necessary throughout this case for the manipulation and positioning of the surgical extremity. My P.A. was assisting me throughout the duration of this procedure. The skill set of a physician assistant to the ceo was medically necessary to complete this procedure. During the surgical case the surgical first assistant was working at the back table and the physician assistant to the ceo was directly assisting me. Operation and Findings: This patient was seen and evaluated preoperatively. Patient sustained an injury resulting a open left tibial plateau fracture. He was initially treated with irrigation debridement and external fixation on night of injury. Informed consent was obtained preoperatively after detailed discussion of the risks and benefits of surgery. Risk of surgery including bleeding, infection, nonunion, painful hardware, stiffness, loss of motion, arthritis, need for knee replacement, as well as medical complications including blood clots, stroke, heart attack, and were discussed. I also discussed the possibility of using allograft bone graft . Preoperatively the operative site was marked. Patient was brought to the operating room and placed on the operating room table. Intravenous sedation and general endotracheal anesthesia were administered. IV antibiotics were given and a time out procedure was preformed. Procedure began with removal of part of the external fixation. Clamps were loosened. Clamps and bars were removed. The pins were left in place at this time. The operative leg was prepped with alcohol followed by Hibiclens and draped in the usual sterile fashion. Procedure began with a 4-inch curvilinear incision over the anterolateral knee. Subcutaneous tissue was treated with Bovie. Iliotibial band was split in line with fibers. A sub-meniscal arthrotomy was created and the lateral articular surface was visualized. There was significant comminution and depression of the articular surface. A window was made in the metaphyseal region and bone tamps used to elevate the articular surface. Articular surface reduced into excellent alignment. K-wires were used for provisional fixation. At this point cancellous bone graft was packed under the articular surface using a bone tamp. The cortical fragments were now reduced. Fluoroscopy revealed excellent alignment of fracture. A Synthes 4.5 proximal tibial plate was selected. The plate was provisionally held with K-wires. 4.5 cortical screws were used compress plate to bone distally, and a periarticular clamp was used to compress the medial and lateral tibial plateau fracture fragments together. Multiple locking screws were now placed proximally. Additional screws were placed in the shaft. K-wires were removed. Final fluoroscopy showed excellent alignment of fracture with well-placed hardware. The incision was thoroughly irrigated. Arthrotomy and iliotibial band closed with #1 Vicryl,. Subcutaneous tissues closed with 3-0 Vicryl and skin was closed with jerri. Sterile dressings were applied. The external fixator pins were now removed. The patient was transferred to recovery in stable condition. Akira Rodriguez MD Jun 12, 2016 19:17
[2016-06-12] MEDS ORDERED: MEPERIDINE HCL 25 MG/ML VIAL ONE (19:38)
[2016-06-12] MEDS ORDERED: MORPHINE SULFATE 4 MG/ML INJ ONE ×4 (19:39→20:39)
[2016-06-12] MEDS ORDERED: fentaNYL CITRATE 250 MCG/5 ML AMP ONE (19:42)
[2016-06-12] MEDS ORDERED: ERGOCALCIFEROL (VIT D2) 50,000 UNIT CAP PO SCH (21:00)
--- NOTE | 2016-06-12 21:51 | RADRPT ---
EXAM DATE/TIME: 06/12/2016 18:41 [facility] COMPARISON: CT KNEE LEFT W/O CONTRAST, June 07, 2016, 19:14. INDICATIONS : Left Knee ORIF. MEDICAL HISTORY : Unobtainable. SURGICAL HISTORY : Unobtainable. ENCOUNTER: Initial ACUITY: 1 day PAIN SCORE: Non-responsive. LOCATION: Left Knee. FINDINGS: Comminuted fracture of the tibial tuberosity and metaphyseal region of the proximal left tibia has un dergone upper reduction internal fixation. Fixation consists of a lateral plate and multiple screws. Alignment is near-anatomic. Medially displaced proximal shaft fracture of the left fibula is again noted. CONCLUSION: Interim screw and plate fixation of the comminuted proximal tibia fracture. Main fracture fragments a re in near-anatomic alignment. Yash Suarez MD on June 12, 2016 at 21:47 Board Certified Radiologist. This report was verified electronically.
[2016-06-12] MEDS: PCA - TOTAL MG MORPHINE DELIVERED PER SHIFT SCH ×2 (22:00→23:56)
[2016-06-12] MEDS: SODIUM CHLORIDE 0.9% FLUSH 5 ML FLUSH IVF SCH (22:16)
[2016-06-12] MEDS: ceFAZolin 2 GM PREMIX 50 ML IV SCH (22:17)
[2016-06-12] MEDS: LACTATED RINGER'S 1000 ML INJ 1,000 ML IV SCH (22:18)
[2016-06-13] VITALS (7 sets, daily range): BP systolic 124–154; BP diastolic 70–85; PULSE 102–114; RESP 16–19; TEMP 97.6–99.2; O2SAT 93–95
[2016-06-13] MEDS: ACETAMINOPHEN/HYDROcodone 325 MG/10 MG TAB PO PRN ×7 (00:46→23:19)
[2016-06-13] MEDS: MELATONIN 5 MG TAB PO PRN (00:49)
[2016-06-13] MEDS: HYDROmorphone HCL PF 1 MG/ML VIAL IV PUSH PRN ×6 (01:49→17:35)
[2016-06-13] MEDS: ceFAZolin 2 GM PREMIX 50 ML IV SCH ×3 (04:10→21:44)
[2016-06-13] MEDS: VANCOMYCIN INJ 1,000 MG in SODIUM CHLOR 0.9% 250 ML INJ 250 ML IV SCH ×2 (04:10→17:35)
[2016-06-13] MEDS: METHOCARBAMOL 500 MG TAB PO SCH ×3 (04:10→21:43)
[2016-06-13] MEDS: LACTATED RINGER'S 1000 ML IV SCH ×3 (04:27→21:46)
[2016-06-13 05:18] LABS: HEMATOCRIT 25.9 % (39.0-51.0); REVIEW FLAG FINAL
[2016-06-13] MEDS ORDERED: XARE10TA PO (06:22)
[2016-06-13] MEDS ORDERED: WHEEMIS3 (06:22)
[2016-06-13] MEDS ORDERED: HYDR-3366 PO (06:22)
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
[2016-06-13] MEDS: FAMOTIDINE 20 MG TAB PO SCH ×2 (08:47→19:48)
[2016-06-13] MEDS: METOPROLOL TARTRATE 25 MG TAB PO SCH (08:47)
[2016-06-13] MEDS: CALCIUM/VITAMIN D 250 MG/125 U TAB PO SCH ×3 (08:47→17:49)
[2016-06-13] MEDS: CHOLECALCIFEROL (VIT D3) 1000 UNIT TAB PO SCH (08:47)
[2016-06-13] MEDS: SODIUM CHLORIDE 0.9% FLUSH 5 ML FLUSH IVF SCH ×2 (08:48→19:58)
[2016-06-13] MEDS: GABAPENTIN 300 MG CAP PO SCH ×3 (08:48→17:49)
[2016-06-13] MEDS: POLYETHYLENE GLYCOL 17 GM PKG PO SCH (08:48)
[2016-06-13] MEDS: DOCUSATE SODIUM 50 MG/SENNA 8.6 MG TAB PO SCH ×2 (08:48→19:48)
[2016-06-13] MEDS: BACITRACIN TOP OINT 15 GM TUBE TOP SCH ×2 (08:52→19:58)
[2016-06-13] MEDS: ENOXAPARIN SODIUM 30 MG/0.3 ML SYRINGE SQ SCH ×2 (09:00→19:48)
[2016-06-13] MEDS: PCA - TOTAL MG MORPHINE DELIVERED PER SHIFT SCH ×3 (14:00→21:36)
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
[2016-06-13] MEDS: LACTATED RINGER'S 1000 ML INJ 1,000 ML IV SCH (19:52)
[2016-06-14] MEDS: ACETAMINOPHEN/HYDROcodone 325 MG/10 MG TAB PO PRN ×6 (03:06→20:48)
[2016-06-14 03:35] VITALS: BP 133/77; PULSE 105; RESP 17; TEMP 98.4; O2SAT 96
[2016-06-14] MEDS: METHOCARBAMOL 500 MG TAB PO SCH ×3 (05:47→20:47)
[2016-06-14] MEDS: VANCOMYCIN INJ 1,000 MG in SODIUM CHLOR 0.9% 250 ML INJ 250 ML IV SCH (05:47)
[2016-06-14] MEDS: ceFAZolin 2 GM PREMIX 50 ML IV SCH ×2 (05:47→13:57)
[2016-06-14] MEDS: MAGNESIUM HYDROXIDE SUSP 30 ML CUP PO PRN (05:49)
[2016-06-14 07:44] VITALS: BP 135/70; PULSE 108; RESP 16; TEMP 98.5; O2SAT 95
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
[2016-06-14] MEDS: FAMOTIDINE 20 MG TAB PO SCH ×2 (08:29→20:46)
[2016-06-14] MEDS: POLYETHYLENE GLYCOL 17 GM PKG PO SCH (08:29)
[2016-06-14] MEDS: ENOXAPARIN SODIUM 30 MG/0.3 ML SYRINGE SQ SCH ×2 (08:29→20:48)
[2016-06-14] MEDS: GABAPENTIN 300 MG CAP PO SCH ×3 (08:29→16:53)
[2016-06-14] MEDS: CHOLECALCIFEROL (VIT D3) 1000 UNIT TAB PO SCH (08:31)
[2016-06-14] MEDS: DOCUSATE SODIUM 50 MG/SENNA 8.6 MG TAB PO SCH ×2 (08:31→20:47)
[2016-06-14] MEDS: CALCIUM/VITAMIN D 250 MG/125 U TAB PO SCH ×3 (08:32→16:53)
[2016-06-14] MEDS: METOPROLOL TARTRATE 25 MG TAB PO SCH (08:32)
[2016-06-14] MEDS: SODIUM CHLORIDE 0.9% FLUSH 5 ML FLUSH IVF SCH ×2 (08:33→20:48)
[2016-06-14] MEDS: BACITRACIN TOP OINT 15 GM TUBE TOP SCH ×2 (08:33→20:48)
[2016-06-14] MEDS: LACTATED RINGER'S 1000 ML INJ 1,000 ML IV SCH ×2 (08:41→20:48)
[2016-06-14] MEDS ORDERED: NEUR300C PO (08:45)
[2016-06-14] MEDS ORDERED: DRIS50002 PO (08:45)
[2016-06-14] MEDS ORDERED: HYDR-3583 PO (08:45)
[2016-06-14] MEDS ORDERED: MILKSUS PO (08:45)
[2016-06-14] MEDS ORDERED: METH500T3 PO (08:45)
[2016-06-14] MEDS ORDERED: BISA10R RECTAL (08:45)
[2016-06-14] MEDS ORDERED: MELA1TAB22 PO (08:45)
[2016-06-14] MEDS ORDERED: FAMO20TA2 PO (08:45)
[2016-06-14] MEDS ORDERED: SENN1TAB PO (08:45)
[2016-06-14] MEDS ORDERED: ENOX30P SQ (08:45)
[2016-06-14] MEDS ORDERED: POLY17S PO (08:45)
[2016-06-14] MEDS ORDERED: OYST250T4 PO (08:45)
[2016-06-14] MEDS ORDERED: VITA100018 PO (08:45)
[2016-06-14] MEDS: BISACODYL 10 MG SUPP RECTAL PRN (09:22)
[2016-06-14 11:50] VITALS: BP 149/82; PULSE 103; RESP 16; TEMP 98.5; O2SAT 96
[2016-06-14] MEDS: PCA - TOTAL MG MORPHINE DELIVERED PER SHIFT SCH ×3 (13:54→20:55)
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
[2016-06-14 16:20] VITALS: BP 149/81; PULSE 107; RESP 16; TEMP 99.5; O2SAT 96
[2016-06-14] MEDS ORDERED: TAMS5CAP PO (18:54)
[2016-06-14 20:15] VITALS: BP 131/67; PULSE 113; RESP 17; TEMP 99.5; O2SAT 95
[2016-06-14] MEDS: TAMSULOSIN HCL 0.4 MG CAP PO SCH (20:45)
[2016-06-14] MEDS: LACTATED RINGER'S 1000 ML IV SCH ×2 (20:56→23:57)
[2016-06-14] MEDS: MELATONIN 5 MG TAB PO PRN (23:59)
[2016-06-15] VITALS: BP 140/72; PULSE 107; RESP 17; TEMP 99.1; O2SAT 93
[2016-06-15] MEDS: ACETAMINOPHEN/HYDROcodone 325 MG/10 MG TAB PO PRN ×5 (03:12→12:51)
[2016-06-15 04:20] VITALS: BP 141/70; PULSE 107; RESP 17; TEMP 97.9; O2SAT 94
[2016-06-15] MEDS: MAGNESIUM HYDROXIDE SUSP 30 ML CUP PO PRN (05:56)
[2016-06-15] MEDS: METHOCARBAMOL 500 MG TAB PO SCH ×2 (05:57→12:51)
[2016-06-15 07:41] VITALS: BP 120/89; PULSE 103; RESP 16; TEMP 95.9; O2SAT 97
--- NOTE | 2016-06-15 08:33 | PD.ORT.PN ---
Subjective Subjective Remarks patient doing better today, was sleeping upon entering room has no voiced complaints does state he saw his left lower extremity x-rays yesterday and questioned why fibula fx was not operated on Objective Vitals Vital Signs Date Time Temp Pulse Resp B/P Pulse Ox O2 Delivery O2 Flow Rate FiO2 06/15/16 06:57 18 06/15/16 04:20 97.9 107 17 141/70 94 06/15/16 00:36 Room Air 06/15/16 00:00 99.1 107 17 140/72 93 06/14/16 20:15 99.5 113 17 131/67 95 06/14/16 16:20 99.5 107 16 149/81 96 06/14/16 11:50 98.5 103 16 149/82 96 I/O 06/14/16 06/14/16 06/14/16 06/15/16 06/15/16 06/15/16 06:59 14:59 22:59 06:59 14:59 22:59 Intake Total 480 ml 960 ml 480 ml 480 ml Output Total 700 ml 300 ml 2225 ml 800 ml Balance -220 ml 660 ml -1745 ml -320 ml Intake Oral 480 ml 960 ml 480 ml 480 ml Output Urine Total 700 ml 300 ml 2225 ml 800 ml # Voids 0 # Bowel Movements 0 0 0 0 Result Diagram: 06/13/16 0450 06/11/16 0548 Imaging Last 72 hours Impressions Wrist X-Ray 06/09/16 0000 Signed Impressions: Service Date/Time: Thursday, June 09, 2016 08:15 - CONCLUSION: Successful ORIF. Yash Bates MD Tibia/Fibula X-Ray 06/08/16 0000 Signed Impressions: Service Date/Time: Wednesday, June 08, 2016 12:19 - CONCLUSION: Questionable lucency at the proximal lateral tibial metaphyseal region. If this an area of clinical concern, CT examination could be performed. Yash Bates MD Knee X-Ray 06/08/16 0000 Signed Impressions: Service Date/Time: Wednesday, June 08, 2016 12:16 - CONCLUSION: Mild effusion. An acute bony injury is not seen. Yash Bates MD Pelvis X-Ray 06/07/16 1834 Signed Impressions: Service Date/Time: Tuesday, June 07, 2016 18:26 - CONCLUSION: 1. Multiple pelvic fractures as above. CT pending. Jori Rivas MD Head CT 06/07/161833 Signed Impressions: Service Date/Time: Tuesday, June 07, 2016 18:57 - CONCLUSION: 1. No acute intracranial abnormalities. Jori Rivas MD Chest X-Ray 06/07/161833 Signed Impressions: Service Date/Time: Tuesday, June 07, 2016 18:26 - CONCLUSION: No acute abnormality demonstrated. Trauma chest CT to follow. Yash Suarez MD Chest CT 06/07/161833 Signed Impressions: Service Date/Time: Tuesday, June 07, 2016 19:04 - CONCLUSION: 1. No acute traumatic injury identified within the thorax. Jori Rivas MD Cervical Spine CT 06/07/161833 Signed Impressions: Service Date/Time: Tuesday, June 07, 2016 18:57 - CONCLUSION: 1. No acute findings in the cervical spine. Mild degenerative disc disease. Jori Rivas MD Abdomen/Pelvis CT 06/07/161833 Signed Impressions: Service Date/Time: Tuesday, June 07, 2016 19:04 - CONCLUSION: 1. Pelvic and sacral fractures as above. Small pelvic sidewall, right anterolateral retroperitoneal and presacral hematomas without active bleeding. The sacral fracture is sagittally oriented and extends down the entire length of the sacral canal. 2. Apparent injury focally of the mesenteric vessels in the right lower quadrant of the abdomen with a small focus of bleeding but minimal surrounding hematoma. I believe it involves a branch of the superior mesenteric vein, not the artery. 3. Solid organs are intact. Also no evidence of bladder rupture. Yash Suarez MD Objective Remarks also seen by Dr. Chaim Thakkar Right upper extremity: Clean dry dressings intact. Intact sensation of her radial ulnar and median nerves patient's good capillary refills. He is able to extend his fingers and make a fist Right lower extremity: Minimal pain with hip range of motion. Pain over lateral tibial plateau. Mild swelling and skin is intact. Knee immobilizer in place. Distally intact sensation with good capillary refills strong dorsiflexion and plantar flexion of foot Left lower extremity: Clean dry dressings intact with knee immobilizer. Distally neurovascularly intact with strong dorsal flexion plantar flexion of foot Assessment & Plan Assessment and Plan Right distal radius fracture status post ORIF POD #6 Left tibia plateau fracture status post ORIF with removal of external fixation POD #3 Right nondisplaced lateral tibial plateau fracture nonoperative treatment Pubic symphysis diastases Nonweightbearing bilateral lower extremities and right wrist Maintain splint right wrist Daily dressing changes Physical therapy for passive range of motion of the left knee with no active leg lifts or quad sets, begin working on transfers to a stretcher chair Pin care twice a day pelvis external fixator Lovenox Incentive spirometry anticipate d/c to rehab when bed available and medically stable Follow-up appointment with Dr. Rodriguez in 2 weeks. After that plan for non- emergency transport back to rehabilitation back to [place]. Dr. Thakkar did explain to patient the reasoning of why fibula fx was non- operative management, all questions answered Loreto Mckinnon Jun 15, 2016 08:33
[2016-06-15] MEDS: CHOLECALCIFEROL (VIT D3) 1000 UNIT TAB PO SCH (08:54)
[2016-06-15] MEDS: POLYETHYLENE GLYCOL 17 GM PKG PO SCH (08:54)
[2016-06-15] MEDS: FAMOTIDINE 20 MG TAB PO SCH (08:55)
[2016-06-15] MEDS: METOPROLOL TARTRATE 25 MG TAB PO SCH (08:55)
[2016-06-15] MEDS: GABAPENTIN 300 MG CAP PO SCH ×2 (08:55→12:51)
[2016-06-15] MEDS: CALCIUM/VITAMIN D 250 MG/125 U TAB PO SCH ×2 (08:55→12:50)
[2016-06-15] MEDS: TAMSULOSIN HCL 0.4 MG CAP PO SCH (08:55)
[2016-06-15] MEDS: SODIUM CHLORIDE 0.9% FLUSH 5 ML FLUSH IVF SCH (08:56)
[2016-06-15] MEDS: DOCUSATE SODIUM 50 MG/SENNA 8.6 MG TAB PO SCH (08:56)
[2016-06-15] MEDS: BACITRACIN TOP OINT 15 GM TUBE TOP SCH (08:56)
[2016-06-15] MEDS: ENOXAPARIN SODIUM 30 MG/0.3 ML SYRINGE SQ SCH (08:56)
[2016-06-15] MEDS: BISACODYL 10 MG SUPP RECTAL PRN (08:56)
[2016-06-15] MEDS: LACTATED RINGER'S 1000 ML INJ 1,000 ML IV SCH (08:57)
[2016-06-15 12:00] VITALS: BP 117/78; PULSE 105; RESP 16; TEMP 96.3; O2SAT 98
[2016-06-15] MEDS: PCA - TOTAL MG MORPHINE DELIVERED PER SHIFT SCH (12:02)
[2016-06-27] MEDS ORDERED: XARE10TA PO (08:14)
[2016-06-27] MEDS ORDERED: TAMS5CAP PO (08:14)
[2016-06-27] MEDS ORDERED: CYCL1TAB29 PO (08:14)
[2016-06-27] MEDS ORDERED: AMLO10TA2 PO (08:14)
[2016-06-27] MEDS ORDERED: LIDO5DIS35 TD (08:14)
[2016-06-27] MEDS ORDERED: MELA1TAB22 PO (08:14)
[2016-06-27] MEDS ORDERED: NEUR300C PO (08:14)
[2016-06-27] MEDS ORDERED: METO-309 PO (08:14)
[2016-06-27] MEDS ORDERED: MULT-65 PO (08:14)
[2016-06-27] MEDS ORDERED: OYST250T4 PO (08:14)
[2016-06-27] MEDS ORDERED: POLY17S PO (08:14)
[2016-06-27] MEDS ORDERED: HYDR-3583 PO (08:14)
[2016-06-27] MEDS ORDERED: FAMO20TA2 PO (08:14)
[2016-06-27] MEDS ORDERED: SENN1TAB PO (08:14)
[2016-06-27] MEDS ORDERED: VITA100018 PO (08:14)
[2016-06-27] MEDS ORDERED: BISA10R RECTAL (08:14)
== END 2016-06-15 13:52 | DRG 958 ==
LOC: NEPI 18:31 → NEDA 19:28 → EDBD 19:28 → N03B 23:10 → N06A 06-08 16:27
PROVIDERS: ADMIT Surgery; ATTEND Surgery
PROC: 0JDP0ZZ Extraction of Left Lower Leg Subcutaneous Tissue and Fascia, Open Approach (ICD-10-PCS; 2016-06-07)
PROC: 0QS335Z Reposition Left Pelvic Bone with External Fixation Device, Percutaneous Approach (ICD-10-PCS; 2016-06-07)
PROC: 0QS235Z Reposition Right Pelvic Bone with External Fixation Device, Percutaneous Approach (ICD-10-PCS; 2016-06-07)
PROC: 0QSH35Z Reposition Left Tibia with External Fixation Device, Percutaneous Approach (ICD-10-PCS; principal; 2016-06-07 20:18)
PROC: 0PSH04Z Reposition Right Radius with Internal Fixation Device, Open Approach (ICD-10-PCS; 2016-06-09)
PROC: 30233N1 Transfusion of Nonautologous Red Blood Cells into Peripheral Vein, Percutaneous Approach (ICD-10-PCS; 2016-06-10)
PROC: 0QSH04Z Reposition Left Tibia with Internal Fixation Device, Open Approach (ICD-10-PCS; 2016-06-12)
PROC: 0QPH35Z Removal of External Fixation Device from Left Tibia, Percutaneous Approach (ICD-10-PCS; 2016-06-12)
DX: S82.142B Displaced bicondylar fracture of left tibia, initial encounter for open fracture type I or II (principal); S32.402A Unspecified fracture of left acetabulum, initial encounter for closed fracture; S52.531A Colles' fracture of right radius, initial encounter for closed fracture; S82.452B Displaced comminuted fracture of shaft of left fibula, initial encounter for open fracture type I or II; S32.019A Unspecified fracture of first lumbar vertebra, initial encounter for closed fracture; S32.029A Unspecified fracture of second lumbar vertebra, initial encounter for closed fracture; S32.039A Unspecified fracture of third lumbar vertebra, initial encounter for closed fracture; S32.10XA Unspecified fracture of sacrum, initial encounter for closed fracture; S36.892A Contusion of other intra-abdominal organs, initial encounter; S32.591A Other specified fracture of right pubis, initial encounter for closed fracture; S32.592A Other specified fracture of left pubis, initial encounter for closed fracture; S32.049A Unspecified fracture of fourth lumbar vertebra, initial encounter for closed fracture; S32.059A Unspecified fracture of fifth lumbar vertebra, initial encounter for closed fracture; S82.144A Nondisplaced bicondylar fracture of right tibia, initial encounter for closed fracture; V28.4XXA Motorcycle driver injured in noncollision transport accident in traffic accident, initial encounter; Y92.410 Unspecified street and highway as the place of occurrence of the external cause
CPT/HCPCS: 25605; 29505; 36430; 70450; 71010; 71260; 72125; 72170; 72190; 73100; 73560; 73590; 73700; 74177; 76000; 80048; 80053; 82435; 82565; 82947; 83735; 84100; 84132; 84295; 84520; 85007; 85014; 85018; 85025; 85027; 85610; 85730; 86850; 86900; 86901; 86920; 87641; 90471; 90715; 93005; 94150; 96374; 99291; C1713; G0390; J0131; J0690; J1100; J1170; J1580; J1650; J2175; J2250; J2270; J2370; J2405; J2710; J3010; J3370; J7050; J7120; L0150; L1830; L8699; P9016; Q9967